=== PATIENT | female | born 1935 | race Caucasian/White ===

== ENCOUNTER → 2017-08-21 | Outpatient (CLI) | payer MEDICARE, OTHER ==
[~2017-08-21] MED LIST: AMLO10 PO; ASCO1ER; ASCO500 PO; ASPI81EC; CALCA500CH; CEPH500 PO; CHOL10002 PO; Co Q-10100 MG PO; ERGO50000 PO; FISH1000; FOLI400; GEMF600; GLUC500; HYDR1TAB94 PO; IRBE150; IRBE150 PO; METO50ER PO; MSM1000; MULVITMINF PO; OMEP20ER; Pyridium100 MG PO; TEGA2; TOCO400; WARF3 PO; WARF4; WARF5 PO
== END ==
LOC: LAB SHORT 13:06 → LAB EV 13:06
DX: N39.0 Urinary tract infection, site not specified (principal)
CPT/HCPCS: 87077; 87086; 87186

== ENCOUNTER → 2018-01-25 | Outpatient (CLI) | payer MEDICARE, OTHER ==
[~2018-01-25] MED LIST changes: +BENZ100A PO; +GUAI600T33 PO; +IRBE75 PO; +LIVALO1 MG PO; +Prednisone20 MG PO; +WARF2 PO
== END | disposition home or self-care (01) ==
LOC: LAB SHORT 14:45 → LAB 14:45
DX: L98.9 Disorder of the skin and subcutaneous tissue, unspecified (principal)
CPT/HCPCS: 87070; 87147

== ENCOUNTER 2018-05-22 17:16 | Emergency (ER) | payer MEDICARE, OTHER ==
[~2018-05-22] VITALS: Ht 154.9 cm; Wt 63.5 kg
[2018-05-22 19:27] LABS: BASOPHILS ABSOLUTE AUTO 0.03 K/mm3 (0.00-0.23); BASOPHILS PERCENT AUTO 0 % (0-2); EOSINOPHILS ABSOLUTE AUTO 0.06 K/mm3 (0.00-0.68); EOSINOPHILS PERCENT AUTO 1 % (0-6); Hematocrit 34.8 % (33.0-51.0); Hemoglobin 10.9 g/dL (11.5-16.0); IMMATURE GRAN ABSOLUTE AUTO 0.04 K/mm3 (0.00-0.10); IMMATURE GRAN PERCENT AUTO 1 % (0-1); LYMPHOCYTES ABSOLUTE AUTO 1.78 K/mm3 (0.84-5.20); LYMPHOCYTES PERCENT AUTO 24 % (21-46); MONOCYTES ABSOLUTE AUTO 0.91 K/mm3 (0.16-1.47); MONOCYTES PERCENT AUTO 12 % (4-13); Mean Corpuscular HGB 29.5 pg (26.0-34.0); Mean Corpuscular HGB Conc 31.3 g/dL (31.5-36.5); Mean Corpuscular Volume 94 fL (80-100); Mean Platelet Volume 10.7 fL (9.1-12.4); NEUTROPHILS ABSOLUTE AUTO 4.58 K/mm3 (1.96-9.15); NEUTROPHILS PERCENT AUTO 62 % (41-73); Platelet Count 222 K/mm3 (150-400); RDW Coefficient Variation 14.6 % (11.7-14.2); RDW Standard Deviation 50.8 fL (35.1-46.3); Red Blood Cell Count 3.69 M/mm3 (3.80-5.20)
[2018-05-22 19:43] LABS: Anion Gap 5 mmol/L (6-16); Blood Urea Nitrogen 22 mg/dL (8-24); Bun/Creatinine Ratio 26.7 (12.0-20.0); CO2, Blood 27 mmol/L (21-32); Calcium, Blood 8.1 mg/dL (8.5-10.1); Chloride, Blood 106 mmol/L (98-108); Creatinine, Blood 0.82 mg/dL (0.40-1.00); Glomerular Filtration Rate >60 (60-); Glucose, Blood 100 mg/dL (70-99); Potassium, Blood 4.3 mmol/L (3.5-5.5); Sodium, Blood 138 mmol/L (136-145)
[2018-05-22 19:44] LABS: International Normalized Ratio 2.69; Prothrombin Time Results 26.1 Sec (9.7-11.5)
[2018-05-22] MEDS ORDERED: Percocet 5-3251 EACH PO (20:38)
== END 2018-05-22 21:04 | disposition home or self-care (01) ==
LOC: ER 17:16
PROVIDERS: Emergency Medicine
DX: M62.830 Muscle spasm of back (principal); I10 Essential (primary) hypertension; I25.10 Atherosclerotic heart disease of native coronary artery without angina pectoris; K21.9 Gastro-esophageal reflux disease without esophagitis; Z88.5 Allergy status to narcotic agent; Z79.899 Other long term (current) drug therapy; Z79.01 Long term (current) use of anticoagulants; Z79.52 Long term (current) use of systemic steroids; Z87.891 Personal history of nicotine dependence
CPT/HCPCS: 72070; 80048; 85025; 85610; 99284-25

== ENCOUNTER → 2018-08-08 | Outpatient (CLI) | payer MEDICARE ==
[~2018-08-08] MED LIST changes: +Percocet 5-3251 EACH PO
[2018-08-08 10:57] LABS: Source, Urine Clean Catch
[2018-08-08 12:30] LABS: Bilirubin, Urine Neg (Neg); Blood, Urine 1+ (Neg); Glucose Qualitative, Urine Neg (Neg); Ketones, Urine Neg (Neg); Leukocyte Esterase, Urine 3+ (Neg); Nitrite, Urine Pos (Neg); Protein, Urine 2+ (Neg); Specific Gravity, Urine 1.015 (1.003-1.022); Urobilinogen, Urine NORM (Normal)
[2018-08-08 12:59] LABS: Appearance, Urine Clear (Clear); Color, Urine Yellow (P-Yellow)
[2018-08-08 13:00] LABS: White Blood Cells, Urine TNTC /hpf (0-5)
[2018-08-08 13:01] LABS: Bacteria Mod /hpf; Red Blood Cells, Urine 0-2 /hpf (0-2); Squamous Epithelial Cells Few /hpf (Few)
== END | disposition home or self-care (01) ==
LOC: LAB SHORT 10:56 → LAB 10:56
PROVIDERS: Internal Medicine
DX: R30.0 Dysuria (principal)
CPT/HCPCS: 81001; 87077; 87086; 87186

== ENCOUNTER 2019-01-16 18:57 | Observation (INO) | payer MEDICARE, OTHER ==
[~2019-01-16] VITALS: Ht 157.5 cm; Wt 62.6 kg
[2019-01-16 20:07] LABS: BASOPHILS ABSOLUTE AUTO 0.03 K/mm3 (0.00-0.23); BASOPHILS PERCENT AUTO 1 % (0-2); EOSINOPHILS ABSOLUTE AUTO 0.08 K/mm3 (0.00-0.68); EOSINOPHILS PERCENT AUTO 1 % (0-6); Hematocrit 36.2 % (33.0-51.0); IMMATURE GRAN ABSOLUTE AUTO 0.05 K/mm3 (0.00-0.10); IMMATURE GRAN PERCENT AUTO 1 % (0-1); LYMPHOCYTES ABSOLUTE AUTO 1.62 K/mm3 (0.84-5.20); LYMPHOCYTES PERCENT AUTO 27 % (21-46); MONOCYTES ABSOLUTE AUTO 0.74 K/mm3 (0.16-1.47); MONOCYTES PERCENT AUTO 12 % (4-13); Mean Corpuscular HGB 28.6 pg (26.0-34.0); Mean Corpuscular HGB Conc 30.4 g/dL (31.5-36.5); Mean Corpuscular Volume 94 fL (80-100); Mean Platelet Volume 10.8 fL (9.1-12.4); NEUTROPHILS ABSOLUTE AUTO 3.48 K/mm3 (1.96-9.15); NEUTROPHILS PERCENT AUTO 58 % (41-73); Platelet Count 226 K/mm3 (150-400); RDW Coefficient Variation 15.8 % (11.7-14.2); RDW Standard Deviation 53.7 fL (35.1-46.3); Red Blood Cell Count 3.84 M/mm3 (3.80-5.20)
[2019-01-16 20:19] LABS: Alanine Aminotransfer (ALT/SGP 26 U/L (12-78); Albumin, Blood 3.7 g/dL (3.4-5.0); Albumin/Globulin Ratio 1.1 (0.8-1.8); Alk Phos 84 U/L (50-136); Anion Gap 4 mmol/L (6-16); Aspartate Aminotrans (AST/SGOT 21 U/L (12-37); Bilirubin, Total 0.2 mg/dL (0.1-1.0); Blood Urea Nitrogen 29 mg/dL (8-24); Bun/Creatinine Ratio 30.2 (12.0-20.0); CO2, Blood 26 mmol/L (21-32); Calcium, Blood 8.8 mg/dL (8.5-10.1); Chloride, Blood 110 mmol/L (98-108); Creatinine, Blood 0.96 mg/dL (0.40-1.00); Globulin, Blood 3.4 g/dL (2.2-4.0); Glomerular Filtration Rate 59 (60-); Glucose, Blood 114 mg/dL (70-99); Potassium, Blood 4.6 mmol/L (3.5-5.5); Sodium, Blood 140 mmol/L (136-145); Total Protein, Blood 7.1 g/dL (6.4-8.2); Troponin I <0.015 ng/mL (0.000-0.040)
[2019-01-16] MEDS ORDERED: VITAMIN D33000 UNIT PO (20:20)
[2019-01-16] MEDS ORDERED: LIVALO2 MG PO (21:18)
[2019-01-16] MEDS ORDERED: METO50ER PO (21:25)
[2019-01-16] MEDS ORDERED: Amlodipine Besy10 MG PO (21:26)
[2019-01-16] MEDS ORDERED: Vitamin D2000 UNIT PO (21:27)
[2019-01-16] MEDS ORDERED: VITAMIN D50000 UNIT PO (22:41)
[2019-01-16] MEDS ORDERED: CO Q10200 MG PO (22:44)
[2019-01-17 00:06] LABS: International Normalized Ratio 1.81; Prothrombin Time Results 18.2 Sec (9.7-11.5)
--- NOTE | 2019-01-17 04:27 | NUR ---
SHIFT SUMMARY: PT IS ALERT AND ORIENTED. PT IS CALM AND COOPERATIVE WITH CARE. PT CALLS APPROPRIATELY. PT IS INDEPENDENT IN THE ROOM. PT REPORTS MINOR CHEST AND BACK PAIN, MEDICATING PER EMAR. PT DENIES NAUSEA, VOMITING, AND SOB. PT SLEPT MUCH OF THE NIGHT AFTER ADMISSION. NO ACUTE CHANGES OR COMPLICATIONS THIS SHIFT. BED IN LOW POSITION, CALL LIGHT WITHIN REACH. WILL REPORT TO DAY NURSE.
[2019-01-17 04:39] LABS: Hematocrit 32.7 % (33.0-51.0); Hemoglobin 10.2 g/dL (11.5-16.0); Mean Corpuscular HGB 28.5 pg (26.0-34.0); Mean Corpuscular HGB Conc 31.2 g/dL (31.5-36.5); Mean Platelet Volume 10.6 fL (9.1-12.4); Platelet Count 206 K/mm3 (150-400); RDW Coefficient Variation 15.8 % (11.7-14.2); RDW Standard Deviation 52.2 fL (35.1-46.3); Red Blood Cell Count 3.58 M/mm3 (3.80-5.20); White Blood Cell Count 10.96 K/mm3 (4.00-11.30)
[2019-01-17 04:42] LABS: Mean Corpuscular Volume 91 fL (80-100)
[2019-01-17 04:53] LABS: International Normalized Ratio 1.7; Prothrombin Time Results 17.2 Sec (9.7-11.5)
[2019-01-17 04:59] LABS: Alanine Aminotransfer (ALT/SGP 22 U/L (12-78); Albumin, Blood 3.1 g/dL (3.4-5.0); Alk Phos 74 U/L (50-136); Anion Gap 3 mmol/L (6-16); Aspartate Aminotrans (AST/SGOT 14 U/L (12-37); Bilirubin, Total 0.2 mg/dL (0.1-1.0); Blood Urea Nitrogen 25 mg/dL (8-24); Bun/Creatinine Ratio 30.5 (12.0-20.0); CO2, Blood 27 mmol/L (21-32); Calcium, Blood 8.2 mg/dL (8.5-10.1); Chloride, Blood 113 mmol/L (98-108); Creatinine, Blood 0.82 mg/dL (0.40-1.00); Globulin, Blood 3.1 g/dL (2.2-4.0); Glomerular Filtration Rate >60 (60-); Glucose, Blood 116 mg/dL (70-99); Potassium, Blood 4.3 mmol/L (3.5-5.5); Sodium, Blood 143 mmol/L (136-145); Total Protein, Blood 6.2 g/dL (6.4-8.2)
[2019-01-17 05:13] LABS: Source, Urine Clean Catch
[2019-01-17 05:18] LABS: Bilirubin, Urine Neg (Neg); Blood, Urine Neg (Neg); Glucose Qualitative, Urine Neg (Neg); Ketones, Urine Neg (Neg); Leukocyte Esterase, Urine 1+ (Neg); Nitrite, Urine Neg (Neg); Protein, Urine 1+ (Neg); Urobilinogen, Urine NORM (Normal)
[2019-01-17 05:24] LABS: Appearance, Urine Clear (Clear); Color, Urine Yellow (P-Yellow)
[2019-01-17 05:26] LABS: Bacteria Not Seen /hpf; Red Blood Cells, Urine Not Seen /hpf (0-2); Squamous Epithelial Cells Few /hpf (Few)
--- NOTE | 2019-01-17 16:48 | NUR ---
PATIENT A/OX4, UP INDPENDENTLY IN ROOM. B/P HAS COME DOWN SOME WITH MEDS, NO HYDRALAZINE GIVEN THIS SHIFT. PATIENT HAD 1ST PART OF STRESS TEST TODAY. WILL BE NPO AFTER BREAKFAST IN AM, NO CAFFEINE AFTER MN. NSR ON TELE, PATIENT REPORTS CHEST PAIN HAS RESOLVED. SKIN INTACT. 20G IV TO R FA WNL AND SL. DENIES ANY PAIN OR DISCOMFORT. CALLS APPROPRIATELY FOR ASSISTANCE.
--- NOTE | 2019-01-18 04:34 | NUR ---
SHIFT SUMMARY: PT IS ALERT AND ORIENTED. PT IS CALM AND COOPERATIVE WITH CARE. PT CALLS APPROPRIATELY. PT UP WITH STANDBY ASSIST TO THE BATHROOM. PT DENIES PAIN, NAUSEA, VOMITING, AND SOB. PT TO HAVE SECOND PART OF STRESS TEST TODAY, NPO AFTER BREAKFAST. POSSIBLE DISCHARGE TODAY. NO ACUTE CHANGES OR COMPLICATIONS. WILL CONTINUE TO MONITOR.
[2019-01-18 09:58] LABS: International Normalized Ratio 1.34; Prothrombin Time Results 13.8 Sec (9.7-11.5)
--- NOTE | 2019-01-18 16:19 | NUR ---
SHIFT SUMMARY: PT IS A/O X 4 WITH NO C/O PAIN. PT REMAINED NPO AFTER BREAKFAST THIS MORNING PER ORDERS FOR 2ND HALF OF STRESS TEST. STRESS TEST WAS COMPLETED AFTER LUNCH. PT REMIANS INDEPENDENT IN HER ROOM AND CALLS FOR HELP APPROPRIATELY.
[2019-01-18] MEDS ORDERED: Prinivil10 MG PO (17:10)
[2019-01-18] MEDS ORDERED: METO50 PO (17:14)
== END 2019-01-18 18:15 | disposition home or self-care (01) ==
LOC: ER 18:57 → MEDS 18:58 → ENPENDDIS 01-18 17:07 → MEDS 01-18 18:15
PROVIDERS: Emergency Medicine; Pharmacist; ADMIT Internal Medicine
DX: I16.0 Hypertensive urgency (principal); R53.1 Weakness; I25.10 Atherosclerotic heart disease of native coronary artery without angina pectoris; I10 Essential (primary) hypertension; E78.1 Pure hyperglyceridemia; K21.9 Gastro-esophageal reflux disease without esophagitis; Z79.899 Other long term (current) drug therapy; Z86.718 Personal history of other venous thrombosis and embolism; Z95.5 Presence of coronary angioplasty implant and graft; Z79.01 Long term (current) use of anticoagulants; Z88.5 Allergy status to narcotic agent
CPT/HCPCS: 36415; 71046; 71275; 74175; 78452; 80053; 81001; 83880; 84484; 85025; 85027; 85610; 87081; 87086; 87147; 93005; 93010; 93017; 96361; 96372; 96374-59; 96375-59; 96376; 99285-25; A9500; G0378; J0360; J1650; J2785; J3010; J7030; Q9967

== ENCOUNTER 2019-02-26 04:52 | Inpatient (IN) | payer MEDICARE, OTHER ==
[~2019-02-26] VITALS: Ht 154.9 cm; Wt 67.4 kg
[~2019-02-26 04:52] MED LIST changes: +Amlodipine Besy10 MG PO; +CENTRUM SILVER1 EAC2 PO; +CO Q10200 MG PO; +FISH OIL 1,0001 EACH PO; -FISH1000; -FOLI400; +FOLI400 PO; +LIVALO2 MG PO; +METO50 PO; -MULVITMINF PO; -OMEP20ER; +OMEP20ER PO; +Prinivil10 MG PO; +VITAMIN D33000 UNIT PO; +VITAMIN D50000 UNIT PO; +Vitamin D2000 UNIT PO
[2019-02-26] MEDS ORDERED: METF500 PO (05:13)
[2019-02-26] MEDS ORDERED: XARELTO20 MG PO (05:14)
[2019-02-26] MEDS ORDERED: HYDR1TAB94 (05:14)
[2019-02-26 05:24] LABS: BASOPHILS ABSOLUTE AUTO 0.04 K/mm3 (0.00-0.23); BASOPHILS PERCENT AUTO 0 % (0-2); EOSINOPHILS ABSOLUTE AUTO 0.09 K/mm3 (0.00-0.68); EOSINOPHILS PERCENT AUTO 1 % (0-6); Hemoglobin 11.2 g/dL (11.5-16.0); IMMATURE GRAN ABSOLUTE AUTO 0.07 K/mm3 (0.00-0.10); IMMATURE GRAN PERCENT AUTO 1 % (0-1); LYMPHOCYTES ABSOLUTE AUTO 2.02 K/mm3 (0.84-5.20); LYMPHOCYTES PERCENT AUTO 16 % (21-46); MONOCYTES ABSOLUTE AUTO 1.22 K/mm3 (0.16-1.47); MONOCYTES PERCENT AUTO 10 % (4-13); Mean Corpuscular HGB 28.1 pg (26.0-34.0); Mean Corpuscular HGB Conc 31.1 g/dL (31.5-36.5); Mean Corpuscular Volume 90 fL (80-100); Mean Platelet Volume 10.6 fL (9.1-12.4); NEUTROPHILS ABSOLUTE AUTO 9.25 K/mm3 (1.96-9.15); NEUTROPHILS PERCENT AUTO 73 % (41-73); Platelet Count 247 K/mm3 (150-400); RDW Standard Deviation 49.8 fL (35.1-46.3); Red Blood Cell Count 3.99 M/mm3 (3.80-5.20); White Blood Cell Count 12.69 K/mm3 (4.00-11.30)
[2019-02-26 05:51] LABS: Alanine Aminotransfer (ALT/SGP 20 U/L (12-78); Albumin, Blood 3.7 g/dL (3.4-5.0); Alk Phos 82 U/L (50-136); Anion Gap 7 mmol/L (6-16); Aspartate Aminotrans (AST/SGOT 18 U/L (12-37); Bilirubin, Total 0.3 mg/dL (0.1-1.0); Blood Urea Nitrogen 28 mg/dL (8-24); Bun/Creatinine Ratio 29.6 (12.0-20.0); CO2, Blood 23 mmol/L (21-32); Calcium, Blood 9.6 mg/dL (8.5-10.1); Chloride, Blood 110 mmol/L (98-108); Creatinine, Blood 0.95 mg/dL (0.40-1.00); Globulin, Blood 3.6 g/dL (2.2-4.0); Glomerular Filtration Rate >60 (60-); Glucose, Blood 120 mg/dL (70-99); Potassium, Blood 4.5 mmol/L (3.5-5.5); Sodium, Blood 140 mmol/L (136-145); Total Protein, Blood 7.3 g/dL (6.4-8.2)
--- NOTE | 2019-02-26 11:30 | NUR ---
ADMISSION PATIENT WAS ADMITTED TO FLOOR AROUND 0950 THIS MORNING. PATIENT DENIED NAUSEA OR PAIN, JUST WANTING TO SLEEP AT THIS TIME. PATIENT ORIENTED TO ROOM AND CALL BUTTON, INSTRUCTED TO CALL BEFORE GETTING UP. SON AT BEDSIDE. LR INFUSING INTO L AC IV. ADMIT HX AND ASSESSMENT WILL FOLLOW.
[2019-02-26 13:01] LABS: Hematocrit 32.6 % (33.0-51.0); Hemoglobin 10.1 g/dL (11.5-16.0)
--- NOTE | 2019-02-26 18:09 | NUR ---
SHIFT SUMMARY PATIENT IS A & O X4, 1 ASSIST TO GET UP. SHE STATES HER PAIN HAS INCREASED OVER THE SHIFT, SHE HAS ACHING AND STABBING PAIN OVER GENERALIZED ABD, FENTANYL GIVEN 1X FOR 5/10 PAIN. PT C/O MILD NAUSEA BUT STATES IT IMPROVED SINCE DR IRVING INSERTED THE NG TUBE AROUND 1445 TODAY. PT STATES HER THROAT HURTS AND IT'S MORE PAINFUL TO TALK WITH THE NG TUBE IN. LARGE AMOUNT DARK BROWN LIQUID PULLED OUT OF HER THROUGH LOW INTERMITTENT SUCTION. BLOOD SUGAR CHECK SWITCHED TO TWICE A DAY. SKIN INTACT. PATIENT HAS NOT HAD A BM THIS SHIFT FOR THE STOOL SAMPLE.
[2019-02-27 06:05] LABS: BASOPHILS ABSOLUTE AUTO 0.02 K/mm3 (0.00-0.23); BASOPHILS PERCENT AUTO 0 % (0-2); EOSINOPHILS ABSOLUTE AUTO 0.09 K/mm3 (0.00-0.68); EOSINOPHILS PERCENT AUTO 1 % (0-6); Hematocrit 29.7 % (33.0-51.0); IMMATURE GRAN ABSOLUTE AUTO 0.04 K/mm3 (0.00-0.10); IMMATURE GRAN PERCENT AUTO 1 % (0-1); LYMPHOCYTES ABSOLUTE AUTO 1.53 K/mm3 (0.84-5.20); LYMPHOCYTES PERCENT AUTO 22 % (21-46); MONOCYTES ABSOLUTE AUTO 0.97 K/mm3 (0.16-1.47); MONOCYTES PERCENT AUTO 14 % (4-13); Mean Corpuscular HGB 28.1 pg (26.0-34.0); Mean Corpuscular HGB Conc 30.3 g/dL (31.5-36.5); Mean Platelet Volume 10.7 fL (9.1-12.4); NEUTROPHILS ABSOLUTE AUTO 4.46 K/mm3 (1.96-9.15); NEUTROPHILS PERCENT AUTO 63 % (41-73); Platelet Count 194 K/mm3 (150-400); RDW Coefficient Variation 15.4 % (11.7-14.2); White Blood Cell Count 7.11 K/mm3 (4.00-11.30)
[2019-02-27 06:07] LABS: Mean Corpuscular Volume 93 fL (80-100)
[2019-02-27 06:30] LABS: Albumin, Blood 2.7 g/dL (3.4-5.0); Albumin/Globulin Ratio 0.9 (0.8-1.8); Bilirubin, Total 0.4 mg/dL (0.1-1.0); Bun/Creatinine Ratio 31.6 (12.0-20.0); Calcium, Blood 8.1 mg/dL (8.5-10.1); Creatinine, Blood 1.14 mg/dL (0.40-1.00); Globulin, Blood 2.9 g/dL (2.2-4.0); Magnesium, Blood 1.5 mg/dL (1.6-2.4); Phosphorus, Blood 3.9 mg/dL (2.5-4.9); Potassium, Blood 4.3 mmol/L (3.5-5.5); Total Protein, Blood 5.6 g/dL (6.4-8.2)
--- NOTE | 2019-02-27 07:29 | NUR ---
PT with hx of mult bowel surgeries and adhesions continues with large amts of green darl thin output. Dr had placed NG tube. Medicated for pain in abd x 2 with 50 mcg fentanyl. 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 HX cabg on tele monitoring with nsr. Up amb in room and had slightly unsteady gait. No stool to guiacc. DR started heparing gtt infusing at 19.2 ml hr. DNR status.
--- NOTE | 2019-02-27 14:46 | NUR ---
Spiritual care visit conducted. Patient is lying in bed and alert. Patient openly shares about her residing in a memory care facility and that they have been 46 years and have 5 grown children. Patient also infroms me that there middle son lives locally while the other children live out of state. I learn about patient's current medical condition and of the 30 surgeries patient has had in her life prior to this visit. I listen empathically and provide companionship and prayer (patient has a Pentecostal background). I will continue to remain available to patient and family.
--- NOTE | 2019-02-27 17:17 | NUR ---
SHIFT SUMMARY PATIENT IS TOLERATING NG TUBE WELL. OUTPUT DOCUMENTED. MEDICATED FOR PAIN. CURRENTLY WATCHING WORLD SERIES. ABLE TO MAKE HER NEEDS KNOWN. MEDICATED FOR PAIN PRN.
[2019-02-28 05:46] LABS: Magnesium, Blood 1.5 mg/dL (1.6-2.4)
[2019-02-28 05:47] LABS: Anion Gap 6 mmol/L (6-16); Blood Urea Nitrogen 20 mg/dL (8-24); Bun/Creatinine Ratio 21.9 (12.0-20.0); CO2, Blood 27 mmol/L (21-32); Chloride, Blood 107 mmol/L (98-108); Creatinine, Blood 0.92 mg/dL (0.40-1.00); Glomerular Filtration Rate >60 (60-); Glucose, Blood 101 mg/dL (70-99); Potassium, Blood 3.8 mmol/L (3.5-5.5); Sodium, Blood 140 mmol/L (136-145)
--- NOTE | 2019-02-28 08:10 | NUR ---
security shift manager summary: Patient had over 700 ml coffee ground gastric contents out overnight via NG to low/intermittant sx. Pain in abdomen controlled moderately with iv dilaudid. primary pain, which was controlled with ice pack was throat. heparin gtt currently running at 16 units/kg/hr for a rate of 20.5ml hour. blood pressures have not had to be covered with iv prn medications as they have remained below treatment parameters. report given to MEMO Barrera day shift.
[2019-02-28 11:01] LABS: BASOPHILS ABSOLUTE AUTO 0.02 K/mm3 (0.00-0.23); BASOPHILS PERCENT AUTO 0 % (0-2); EOSINOPHILS ABSOLUTE AUTO 0.11 K/mm3 (0.00-0.68); EOSINOPHILS PERCENT AUTO 2 % (0-6); Hematocrit 30.3 % (33.0-51.0); Hemoglobin 9.1 g/dL (11.5-16.0); IMMATURE GRAN ABSOLUTE AUTO 0.02 K/mm3 (0.00-0.10); IMMATURE GRAN PERCENT AUTO 0 % (0-1); LYMPHOCYTES ABSOLUTE AUTO 1.14 K/mm3 (0.84-5.20); LYMPHOCYTES PERCENT AUTO 21 % (21-46); MONOCYTES ABSOLUTE AUTO 0.99 K/mm3 (0.16-1.47); MONOCYTES PERCENT AUTO 18 % (4-13); Mean Corpuscular HGB 28.5 pg (26.0-34.0); Mean Corpuscular Volume 95 fL (80-100); NEUTROPHILS ABSOLUTE AUTO 3.11 K/mm3 (1.96-9.15); NEUTROPHILS PERCENT AUTO 58 % (41-73); Platelet Count 180 K/mm3 (150-400); RDW Coefficient Variation 15.1 % (11.7-14.2); RDW Standard Deviation 52.7 fL (35.1-46.3); Red Blood Cell Count 3.19 M/mm3 (3.80-5.20); White Blood Cell Count 5.39 K/mm3 (4.00-11.30)
--- NOTE | 2019-02-28 16:44 | NUR ---
SHIFT SUMMARY PATIENT MEDICATED X 2 FOR PAIN. DENIES NAUSEA AND SHORTNESS OF BREATH. NG TUBE TO LIS, DRAINING BROWN COFFEE GROUND OUTPUT. HEPARIN DRIP RUNNING. TPN ORDERED TO START TODAY. PATIENT UP SBA TO BSC. NO BM TODAY. FAMILY AT BEDSIDE. CALL LIGHT IN REACH.
--- NOTE | 2019-03-01 01:33 | NUR ---
PHARMACIST CONTACT: HEPARIN SPOKE WITH BARD DECKER REGARDING DISCREPANCY BETWEEN ORDERED DOSE OF HEPARIN AND DOSE BEING ADMINISTERED. PT PTT WITHIN THERAPEUTIC RANGE. PER PHARMACIST CONTINUE CURRENT HEPARIN DOSE OF 20 UNITS/KG/HR AT 25.6MLS/HR. NEXT PTT WILL BE DRAWN AT 0400 SCHEDULED.
[2019-03-01 04:40] LABS: Anion Gap 5 mmol/L (6-16); Blood Urea Nitrogen 15 mg/dL (8-24); Bun/Creatinine Ratio 16.7 (12.0-20.0); CO2, Blood 29 mmol/L (21-32); Calcium, Blood 7.9 mg/dL (8.5-10.1); Chloride, Blood 104 mmol/L (98-108); Glomerular Filtration Rate >60 (60-); Glucose, Blood 149 mg/dL (70-99); Magnesium, Blood 1.8 mg/dL (1.6-2.4); Phosphorus, Blood 2.7 mg/dL (2.5-4.9); Potassium, Blood 3.9 mmol/L (3.5-5.5); Sodium, Blood 138 mmol/L (136-145)
--- NOTE | 2019-03-01 06:08 | NUR ---
PHARMACY: RE: PTT RECIEVED CALL FROM PHARMACIST REGARDING PTT AND HEPARIN DOSING. PTT WITHIN THERAPEUTIC RANGE. NO CHANGE TO CURRENT HEPARIN DOSING. EMAR WILL BE UPDATED WITH RATE AT WHICH HEPARIN HAS BEEN INFUSIN UNITS/KG/HR AT RATE OF 25.6MLS/HR.
--- NOTE | 2019-03-01 07:46 | NUR ---
SHIFT SUMMARY: A/O, COMMUNICATING NEEDS. PLEASANT. REQUESTED DILAUDID FOR PAIN X 2 DURING THE NIGHT, FELL ASLEEP AFTER RECIEVING MEDICATION. T/F WITH 1 A. BOWEL TONES ACTIVE X 4. NO N/V. NO BM. INTERMITTENT NGT SUCTION- 500 CC COLA COLORED GASTRIC CONTENTS PUT OUT. TPN INCREASED TO 95 CC/HR, TOLERATED WELL. RESTING QUIETLY AT TIME OF SHIFT CHANGE. BED LOW, CALL LIGHT IN REACH.
--- NOTE | 2019-03-01 15:00 | NUR ---
Initial palliative care assessment: Shaista is an 83 year old who was admitted for a small bowel obstruction on 02/26/19. She has a history of recurrent SBO, recurrent DVT, DM, HTN, GERD. She reports having about 30 surgeries in the past. She has had many SBO in the past and states that she has always required surgery to relieve the SBO. She is currently on bowel rest with PPN nutrition and an NG tube to suction which has drained 500-600 ml per 12 hour shift over the past 24 hours. She denies nausea. She reports diffuse abd pain 5/10 which she states is better than it was when she was admitted and a sore throat/left neck area from the irritation of the NG tube. She lives alone. Her lives at [place]. She is his decision maker. Her brother and deaulh-sy-okm live about two blocks from her house. She has a son who lives in [place]. She reports that she is normally independent with ADLs and drives. She states that she sees Dr. Jaycee Watkins as per PCP and that she has and AD/POLST on file at Dr. Watkins' office. She reports she has a long history of mulitple surgeries and adhesions. She is hopeful that she will not have to have another surgery this time. She has passed flatus three times today. She was medicated for pain during my visit and became quite sleepy after the pain medication was given. She reports pain relief with IV pain medication. Nausea resolved with placement of the NG tube. She is hopeful that she will be able to go home after this hospital stay, she does however say she is willing to go to rehab if needed. Encouraged her to increase her mobility. She states that she has not been very active over the past couple days. She is looking forward to getting up and moving around even though it is difficult to do with all the tubes that are connected to her. Visit shortened as she wanted to rest after receiving pain medication. Will contact Dr. Watkins' office to see if a copy of her AD/POLST can be obtained. She confirmed her DNR status. PC will continue to follow for advanced care planning and symptom management.
--- NOTE | 2019-03-01 18:27 | NUR ---
SHIFT SUMMARY NO ACUTE CHANGES. PATIENT MEDICATED X 1 FOR PAIN. DENIES NAUSEA AND SHORTNESS OF BREATH. PATIENT UP SBA TO BS FOR LINE MANAGEMENT. PATIENT REPORTS PASSING GAS TODAY BUT NO BM. TPN RUNNING. HEPARIN DRIP RUNNING AT 19 UNITS/KG/HR. CALL LIGHT IN REACH.
[2019-03-02 04:32] LABS: Mean Platelet Volume 10.7 fL (9.1-12.4); Platelet Count 203 K/mm3 (150-400)
[2019-03-02 04:47] LABS: Anion Gap 7 mmol/L (6-16); Blood Urea Nitrogen 15 mg/dL (8-24); CO2, Blood 28 mmol/L (21-32); Calcium, Blood 8.3 mg/dL (8.5-10.1); Chloride, Blood 101 mmol/L (98-108); Creatinine, Blood 0.75 mg/dL (0.40-1.00); Glomerular Filtration Rate >60 (60-); Glucose, Blood 138 mg/dL (70-99); Magnesium, Blood 1.6 mg/dL (1.6-2.4); Phosphorus, Blood 2.9 mg/dL (2.5-4.9); Potassium, Blood 4.2 mmol/L (3.5-5.5); Sodium, Blood 136 mmol/L (136-145); Triglycerides 199 mg/dL (30-160)
--- NOTE | 2019-03-02 05:02 | NUR ---
SHIFT SUMMARY NO PASSING OF GAS OR BM THIS SHIFT. PT HAS HAD COMPLAINTS OF ABD PAIN OFF AND ON. NO OTHER COMPLAINTS AT THIS TIME. WILL CONTINUE TO MONITOR.
--- NOTE | 2019-03-02 09:29 | NUR ---
LATE ENTRY FOR 0700. HEPARIN VERIFIED. HEPARIN VERIFIED WITH MEMO WRIGHT.
--- NOTE | 2019-03-02 12:01 | NUR ---
PT SON'S NUMBER GIVEN TO DR. RAINEY. PT SON REQUESTING CALL FROM DR. DR. RAINEY GIVEN PT SON'S NUMBER & INFORMED THEY WOULD LIKE A PHONE CALL ABOUT PLAN OF CARE CAR. TELE ALSO DC'ED PER DR. GRANADOS
--- NOTE | 2019-03-02 12:39 | NUR ---
LATE ENTRY FOR 0730. IV COMPATIBILITY BHUMIKA MATUTE, PHARMACIST CONFIRMED THAT PPN & IV HEPARIN IS COMPATIBLE.
--- NOTE | 2019-03-02 17:18 | NUR ---
SHIFT SUMMARY NO CHANGES IN ASSESSMENT AT THIS TIME. PT NGT AT LOW INTERMITTEN SUCTION BROWNISH/GREEN OUTPUT. PT GIVEN HURRICAINE SPRAY 2X THIS SHIFT FOR THROAT PAIN. MEDICATED WITH PAIN MEDS ONCE. VSS. NO OTHER CHANGES IN ASSESSMENT AT THIS TIME. WILL CONTINUE TO MONITOR UNTIL TURNOVER IS COMPLETE.
--- NOTE | 2019-03-02 18:23 | NUR ---
HEPARIN TITRATION-LATE ENTRY FROM 1700 HEPARIN TITRATED TO 20 U/HR. 25.6ML/HR. VERIFIED BY JASMYNE Sexton RN.
--- NOTE | 2019-03-02 19:43 | NUR ---
LATE ENTRY FOR HEPARIN VERIFICATION AT 1900. HEPARIN VERIFIED WITH HENRY HAMPTON.
--- NOTE | 2019-03-03 03:39 | NUR ---
SHIFT SUMMARY NO CHANGES THIS SHIFT. PT HAS APPEARED TO REST COMFORTABLY. PT IS STILL WEAK AND SPEAKS VERY SOFTLY. PT SAYS SHE HAS BEEN PASSING GAS. WILL CONTINUE TO MONITOR.
[2019-03-03 05:00] LABS: Anion Gap 8 mmol/L (6-16); Blood Urea Nitrogen 19 mg/dL (8-24); Bun/Creatinine Ratio 26.4 (12.0-20.0); CO2, Blood 26 mmol/L (21-32); Calcium, Blood 8.3 mg/dL (8.5-10.1); Chloride, Blood 101 mmol/L (98-108); Creatinine, Blood 0.72 mg/dL (0.40-1.00); Glomerular Filtration Rate >60 (60-); Glucose, Blood 141 mg/dL (70-99); Magnesium, Blood 1.7 mg/dL (1.6-2.4); Phosphorus, Blood 3.2 mg/dL (2.5-4.9); Potassium, Blood 4.1 mmol/L (3.5-5.5); Sodium, Blood 135 mmol/L (136-145)
--- NOTE | 2019-03-03 18:45 | NUR ---
SHIFT SUMMARY. A&OX3, SBA TO BSC. NG TUBE TO GRAVITY THIS AFTERNOON, STARTED ON CLEAR LIQUIDS THIS EVENING. PT REPORTED PAIN TO THROAT SECONDARY TO NG, SHE REPORTED NOT TOLERATING HURRICANE SPRAY, MAGIC MOUTHWASH ORDERS RECIEVED, PT REPORTS RELIEF. PT REPORTED BACK PAIN SECONDARY TO BEDREST, ORDERS FOR LIDOCAINE PATCH RECIEVED, PT REPORTED NO BACK PAIN THIS SHIFT. NO N/V, SOB. FAMILY AND FRIENDS INTERMITTENTLY TO VISIT. PT RECIEVED BED BATH. NO NEW CHANGES OR CONCERNS.
--- NOTE | 2019-03-04 04:08 | NUR ---
SHIFT SUMMARY PT HAS REQUIRED LESS PAIN MEDICATION THIS SHIFT. SHE HAS APPEARED TO REST COMFORTABLY. NO OTHER CHANGES. WILL CONTINUE TO MONITOR.
--- NOTE | 2019-03-04 10:11 | NUR ---
NG TUBE CAME OUT WHEN PROGRESS WORKER MOVED PATIENT TO [facility]. PER OK TO LEAVE OUT AT THIS TIME. PATIENT PASSING GAS. NO BOWEL MOVEMENT. SIPS OF CLEAR LIQUIDS.
--- NOTE | 2019-03-04 16:50 | NUR ---
ALERT. ORIENTED. DENIES ANY PAIN THIS SHIFT. REFUSED LIDOCAINE PATCHES THIS SHIFT.NG NOT RESTARTED PER WITH AWARE.AMBULATORY IN HALLWAY. PASSING GAS, BUT NO BOWEL MOVEMENT AT THIS TIME. EATTING CLEAR LIQUIDS AND TOLERATING. DENIES N/V. UNLABORED RESPIRATIONS. BOWEL SOUNDS PRESENT. IV X 2 PATENT. HEPARIN D'C AND STARTED ON P.O. WCTM
--- NOTE | 2019-03-05 04:18 | NUR ---
SUMMARY: A/O, SPECIFIES NEEDS AND CALLS APPROPRIATELY. PT IS SBA W/FWW TO TOILET. SHE IS TOLERATING CLEAR LIQ'S AFTER NGT ACCIDENTALLY CAME OUT ON DAY SHIFT. PT DENIES N/V AND ABDO PAIN. SHE'S PASSING FLATUS BUT STILL HASN'T HAD BM SO UNABLE TO COLLECT GUAIC. PT WAS MEDICATED PRN W/DILAUDID 0.5MG FOR MARMOLEJO, NECK AND THROAT PAIN W/GOOD RELIEF. PT REFUSED NEED FOR LIDOCAINE PATCHES. NEW ORDERS RECIEVED FOR MELATONIN FOR SLEEP AND CEPACOL LOZANGES FOR SORE THROAT PER PT REQUEST, BOTH HAD GOOD EFFECT. IV AND PG ARE PATENT AND SL. RESPS E/U W/SPO2 WNL ON VIA NM. VSS/AFEBRILE, NO ACUTE CHANGES. WCTM AND REPORT TO DAY RN.
--- NOTE | 2019-03-05 09:18 | NUR ---
IN TO SEE PATIENT. BIBIANA NOTIFIED NEXT AVAILABLE TIME TO TRY AND WALK PATIENT IN HALLWAY
--- NOTE | 2019-03-05 12:00 | NUR ---
ADVISED PATIENT TAVERN KEEPER WILL TAKE HER FOR A WALK IN HALLWAY BEFORE 1PM. PATIENT AGREEABLE
--- NOTE | 2019-03-05 18:30 | NUR ---
ALERT. ORIENTED. DENIES N/V OR ABD PAIN. SLEEPY TODAY. SOME FITS OF COUGHING W/LOZENGE GIVEN FOR RELIEF.HAD EXCUSES FOR NOT AMBULATING TODAY. IV'S PATENT. UNLABORED RESPIRATIONS. STS PASSING SOME GAS, NO BOWEL MOVEMENT. WCTM
--- NOTE | 2019-03-05 22:26 | NUR ---
1999 RESTING COMFORTABLY IN BED, CONTACT PRECAUTIONS INTACT.
--- NOTE | 2019-03-06 05:14 | NUR ---
SHIFT SUMMARY: 83 Y/O FEMALE RESTED COMFORTABLY ALL SHIFT, NO BMs NOTED THIS SHIFT, STATED, "IM PASSING FLATUS, DENIES PAIN OR NAUSEA, CONTACT PRECAUTIONS MAINTAINED, BED ALARM APPLIED, BED LOW POSITION WITH CALL LIGHT AT SIDE.
--- NOTE | 2019-03-06 18:09 | NUR ---
SUMMARY PATIENT UP IN ROOM TO BATHROOM AND TO SIT IN CHAIR THROUGHOUT SHIFT. PATIENT [place] SMALL AMOUNTS OF REGULAR DIET AND DENIES NAUSEA OR ABD PAIN. PATIENT IS PASSING FLATUS. PATIENT TELLS ME SHE HAD AT ONE TIME AGREED TO SNF BUT NOW FEELS SHE CAN MANAGE AT HOME WITH FRIENDS AND FAMILY ASSISTING HER IF NEEDED
--- NOTE | 2019-03-07 04:05 | NUR ---
SHIFT SUMMARY: 83 Y/O FEMALE RESTED COMFORTABLY ALL SHIFT WITH NO C/O PAIN OR NAUSEA, PASSING FLATUS, EAGER TO RETURN HOME TODAY WITH HOME HEALTH CARE, ALERT AND ORIENTED X 4, BED ALARM APPLIED, BED LOW POSITION WITH CALL LIGHT AT SIDE, CONTACT PRECAUTIONS INTACT.
[2019-03-07] MEDS ORDERED: LIDOCARE1 EACH TOP (11:32)
[2019-03-07] MEDS ORDERED: NYST100000 MT (11:33)
--- NOTE | 2019-03-07 14:25 | NUR ---
Spiritual care visit conducted. Patient is sitting up on a chair and states that she is ready to go home. Patient tells me that she is very tired from staying in the hospital and that there is always activity and noise. Patient tells me that she is feeling much better than when she came in and is thatnkful that she did not have to have surgery. I provide a prayer of blessing for patient and her family. Patient thanks me for my time and care during her stay.
--- NOTE | 2019-03-07 16:29 | NUR ---
PT DISCHARGED AT 1600 WITH SON TO TRANSPORT. ALL PAPERS REVEIWED AND EDUCATIONAL MATERIAL SENT WITH PT. PERSONAL BELONGINGS COLLECTED AND PT ESCORTED OUT VIA WHEEL CHAIR. NO DISTRESS NOTED AOX4 AND COOPERATIVE OF ALL CARE.
== END 2019-03-07 15:52 | disposition home health service (06) | DRG 389 ==
LOC: ER 04:52 → MEDS 09:26 → ENPENDDIS 03-07 11:00 → MEDS 03-07 15:52
PROVIDERS: Emergency Medicine; Hospitalist; Nurse Practitioner Acute Care; Surgery; ADMIT Internal Medicine
DX: K56.609 Unspecified intestinal obstruction, unspecified as to partial versus complete obstruction (principal); I82.5Z9 Chronic embolism and thrombosis of unspecified deep veins of unspecified distal lower extremity; N17.9 Acute kidney failure, unspecified; Z79.01 Long term (current) use of anticoagulants; Z66 Do not resuscitate; I25.10 Atherosclerotic heart disease of native coronary artery without angina pectoris; E11.51 Type 2 diabetes mellitus with diabetic peripheral angiopathy without gangrene; K21.9 Gastro-esophageal reflux disease without esophagitis; I10 Essential (primary) hypertension; Z95.1 Presence of aortocoronary bypass graft; Z79.84 Long term (current) use of oral hypoglycemic drugs
CPT/HCPCS: 36415; 74019; 74176; 80048; 80053; 82947; 83690; 83735; 84100; 84478; 85014; 85018; 85025; 85049; 85730; 87081; 93005; 93010; 96374; 96375; 96376; 99285-25; C1751; C9113; J0360; J0610; J1170; J1644; J2405; J2550; J3010; J3411; J3475; J3480; J7120; J7131

== ENCOUNTER 2019-05-26 10:25 | Emergency (ER) | payer MEDICARE, OTHER ==
[~2019-05-26] VITALS: Ht 157.5 cm; Wt 62.6 kg
[~2019-05-26 10:25] MED LIST changes: +HYDR1TAB94; +LIDOCARE1 EACH TOP; +METF500 PO; +NYST100000 MT; +XARELTO20 MG PO
[2019-05-26] MEDS ORDERED: IRBESARTAN300 MG PO (11:23)
[2019-05-26] MEDS ORDERED: METFORMIN HCL500 M2 PO (11:25)
[2019-05-26] MEDS ORDERED: ROSU10TA PO (11:26)
[2019-05-26] MEDS ORDERED: HYDR1TAB94 PO (13:39)
== END 2019-05-26 14:30 | disposition home or self-care (01) ==
LOC: ER 10:25
DX: M62.830 Muscle spasm of back (principal); I10 Essential (primary) hypertension; I25.10 Atherosclerotic heart disease of native coronary artery without angina pectoris; E11.51 Type 2 diabetes mellitus with diabetic peripheral angiopathy without gangrene; I73.9 Peripheral vascular disease, unspecified; E78.5 Hyperlipidemia, unspecified; K21.9 Gastro-esophageal reflux disease without esophagitis; Z86.718 Personal history of other venous thrombosis and embolism; Z79.84 Long term (current) use of oral hypoglycemic drugs; Z88.5 Allergy status to narcotic agent; Z79.899 Other long term (current) drug therapy
CPT/HCPCS: 96374; 99284-25; A9270-GY; J3010

== ENCOUNTER 2019-07-02 07:38 | Inpatient (IN) | payer MEDICARE, OTHER ==
[~2019-07-02] VITALS: Ht 157.5 cm; Wt 58.1 kg
[~2019-07-02 07:38] MED LIST changes: +IRBESARTAN300 MG PO; +METFORMIN HCL500 M2 PO; +METO25 PO; -METO50 PO; +ROSU10TA PO; +VITAMIN D-32000 UNIT PO; -VITAMIN D33000 UNIT PO
[2019-07-02 08:09] LABS: BASOPHILS ABSOLUTE AUTO 0.05 K/mm3 (0.00-0.23); BASOPHILS PERCENT AUTO 1 % (0-2); EOSINOPHILS ABSOLUTE AUTO 0.14 K/mm3 (0.00-0.68); EOSINOPHILS PERCENT AUTO 1 % (0-6); Hematocrit 28.9 % (33.0-51.0); Hemoglobin 8.4 g/dL (11.5-16.0); IMMATURE GRAN ABSOLUTE AUTO 0.08 K/mm3 (0.00-0.10); IMMATURE GRAN PERCENT AUTO 1 % (0-1); LYMPHOCYTES ABSOLUTE AUTO 1.84 K/mm3 (0.84-5.20); LYMPHOCYTES PERCENT AUTO 17 % (21-46); MONOCYTES ABSOLUTE AUTO 0.97 K/mm3 (0.16-1.47); MONOCYTES PERCENT AUTO 9 % (4-13); Mean Corpuscular HGB 25.8 pg (26.0-34.0); Mean Corpuscular HGB Conc 29.1 g/dL (31.5-36.5); Mean Corpuscular Volume 89 fL (80-100); Mean Platelet Volume 10.4 fL (9.1-12.4); NEUTROPHILS ABSOLUTE AUTO 7.96 K/mm3 (1.96-9.15); NEUTROPHILS PERCENT AUTO 72 % (41-73); Platelet Count 278 K/mm3 (150-400); RDW Coefficient Variation 15.9 % (11.7-14.2); RDW Standard Deviation 51.2 fL (35.1-46.3); Red Blood Cell Count 3.26 M/mm3 (3.80-5.20); White Blood Cell Count 11.04 K/mm3 (4.00-11.30)
[2019-07-02 08:27] LABS: Alanine Aminotransfer (ALT/SGP 18 U/L (12-78); Albumin, Blood 3.4 g/dL (3.4-5.0); Alk Phos 63 U/L (50-136); Anion Gap 5 mmol/L (6-16); Aspartate Aminotrans (AST/SGOT 22 U/L (12-37); Bilirubin, Total 0.1 mg/dL (0.1-1.0); Blood Urea Nitrogen 29 mg/dL (8-24); CO2, Blood 24 mmol/L (21-32); Calcium, Blood 9.1 mg/dL (8.5-10.1); Chloride, Blood 112 mmol/L (98-108); Creatinine, Blood 0.91 mg/dL (0.40-1.00); Globulin, Blood 3.3 g/dL (2.2-4.0); Glomerular Filtration Rate >60 (60-); Glucose, Blood 127 mg/dL (70-99); Potassium, Blood 4.3 mmol/L (3.5-5.5); Sodium, Blood 141 mmol/L (136-145); Total Protein, Blood 6.7 g/dL (6.4-8.2)
[2019-07-02 09:37] LABS: Source, Urine Voided
[2019-07-02 09:41] LABS: Bilirubin, Urine Neg (Neg); Blood, Urine 1+ (Neg); Glucose Qualitative, Urine Neg (Neg); Ketones, Urine Neg (Neg); Leukocyte Esterase, Urine 1+ (Neg); Nitrite, Urine Neg (Neg); Protein, Urine 3+ (Neg); Specific Gravity, Urine 1.015 (1.003-1.022); Urobilinogen, Urine NORM (Normal)
[2019-07-02 09:46] LABS: Appearance, Urine Clear (Clear); Color, Urine Yellow (P-Yellow)
[2019-07-02 09:48] LABS: Bacteria Rare /hpf; Red Blood Cells, Urine 0-2 /hpf (0-2); Squamous Epithelial Cells Few /hpf (Few)
--- NOTE | 2019-07-02 15:14 | NUR ---
assumed care of pt from praveena campuzano rn PT RESTING IN BED. REPORTS NAUSEA "SO-SO" AND PAIN TOLERABLE. DENIES ANY NEEDS OTHER THAN PHONE TO MAKE CALL. MAINTENANCE HAS BEEN CALLED. CALL LIGHT IN REACH.
--- NOTE | 2019-07-02 15:51 | NUR ---
PERMISSION PATIENT GAVE PERMISSION ON 07/02/2019 TO BE INVOLVED IN HER CARE DURING CLINICAL TIME ON 07/03/2019.
[2019-07-02 16:18] LABS: Mean Platelet Volume 10.4 fL (9.1-12.4); Platelet Count 261 K/mm3 (150-400)
[2019-07-02 16:35] LABS: International Normalized Ratio 1.19; Prothrombin Time Results 12.6 Sec (9.7-11.5)
--- NOTE | 2019-07-02 18:19 | NUR ---
SUMMARY PT RESTING IN BED. UNABLE TO OBTAIN SECOND IV SITE. HEPARIN AND NS Y SITE COMPATIBLE PER PHARMACY. PT REPORTS PAIN AND NAUSEA TOLERABLE AT THIS TIME. PT SLEEPY. PASSED FLATUS WHILE RN IN ROOM. CALL LIGHT IN REACH.
[2019-07-03 00:20] LABS: BASOPHILS ABSOLUTE AUTO 0.02 K/mm3 (0.00-0.23); BASOPHILS PERCENT AUTO 0 % (0-2); EOSINOPHILS ABSOLUTE AUTO 0.07 K/mm3 (0.00-0.68); EOSINOPHILS PERCENT AUTO 1 % (0-6); Hematocrit 23.6 % (33.0-51.0); Hemoglobin 6.7 g/dL (11.5-16.0); IMMATURE GRAN ABSOLUTE AUTO 0.04 K/mm3 (0.00-0.10); IMMATURE GRAN PERCENT AUTO 1 % (0-1); LYMPHOCYTES ABSOLUTE AUTO 1.23 K/mm3 (0.84-5.20); LYMPHOCYTES PERCENT AUTO 15 % (21-46); MONOCYTES ABSOLUTE AUTO 0.88 K/mm3 (0.16-1.47); MONOCYTES PERCENT AUTO 10 % (4-13); Mean Corpuscular HGB 25.6 pg (26.0-34.0); Mean Corpuscular HGB Conc 28.4 g/dL (31.5-36.5); Mean Corpuscular Volume 90 fL (80-100); Mean Platelet Volume 10.2 fL (9.1-12.4); NEUTROPHILS ABSOLUTE AUTO 6.23 K/mm3 (1.96-9.15); NEUTROPHILS PERCENT AUTO 74 % (41-73); Platelet Count 210 K/mm3 (150-400); RDW Standard Deviation 53.1 fL (35.1-46.3); Red Blood Cell Count 2.62 M/mm3 (3.80-5.20); White Blood Cell Count 8.47 K/mm3 (4.00-11.30)
[2019-07-03 00:35] LABS: International Normalized Ratio 1.21; Prothrombin Time Results 12.8 Sec (9.7-11.5)
[2019-07-03 00:40] LABS: Magnesium, Blood 1.6 mg/dL (1.6-2.4)
[2019-07-03 00:41] LABS: Alanine Aminotransfer (ALT/SGP 50 U/L (12-78); Albumin, Blood 2.6 g/dL (3.4-5.0); Alk Phos 67 U/L (50-136); Anion Gap 4 mmol/L (6-16); Aspartate Aminotrans (AST/SGOT 36 U/L (12-37); Bilirubin, Total 0.2 mg/dL (0.1-1.0); Blood Urea Nitrogen 28 mg/dL (8-24); Bun/Creatinine Ratio 29.9 (12.0-20.0); CO2, Blood 24 mmol/L (21-32); Calcium, Blood 7.6 mg/dL (8.5-10.1); Chloride, Blood 117 mmol/L (98-108); Creatinine, Blood 0.94 mg/dL (0.40-1.00); Globulin, Blood 2.7 g/dL (2.2-4.0); Glomerular Filtration Rate >60 (60-); Glucose, Blood 107 mg/dL (70-99); Potassium, Blood 4.4 mmol/L (3.5-5.5); Sodium, Blood 145 mmol/L (136-145); Total Protein, Blood 5.3 g/dL (6.4-8.2)
--- NOTE | 2019-07-03 04:13 | NUR ---
CALL PLACED TO MEDICAL ASSOCIATE MD REGUARDING 1.7 POINT DROP IN HGB ABD 5.3 POINT DROP IN HCT, WILL ALSO UPDATE ON CRITICAL HIGH ON PTT. WILL CONTINUE TO MONITOR.
--- NOTE | 2019-07-03 04:43 | NUR ---
SECOND CALL PLACED TO MAJOR ACCOUNT MANAGER. WILL CONTINUE TO MONITOR.
--- NOTE | 2019-07-03 05:15 | NUR ---
CALL TO SUPERVISING ARCHITECT MD NOT RETURNED. NURSING HAND CIGAR MAKER CONTACTED AND INFORMED, WILL CONTINUE TO MONITOR.
--- NOTE | 2019-07-03 05:20 | NUR ---
SHIFT SUMMARY RESTING WITH EASE AT THIS TIME. RESPIRATIONS EVEN AND UNLABORED ON RA. HAS NO C/O PAIN THIS SHIFT. CONTINENT OF BOWEL AND BLADDER, USES BATHROOM. PIV IS PATENT, FLUSIHING WITH EASE WHILE INFUSING NS AT 100ML/HR AND HEPARIN AT 16.3ML/HR. DENIES FURTHER NEEDS OR WANTS AT THIS TIME. SAFETY MEASURES IN PLACE. WILL GIVE HAND OFF TO ONCOMING SHIFT USING SBAR.
[2019-07-03 08:42] LABS: Hematocrit 21.6 % (33.0-51.0); Hemoglobin 6.1 g/dL (11.5-16.0)
--- NOTE | 2019-07-03 14:06 | NUR ---
Patient is lying in bed and alert. Patient's son, Tenzin, is bedside. Patient tells me about her medical history, her family history and her concerns about what might be happening going forward. I listen empathically and provide companionship and pre-imaging/ possible surgery prayer. Patient responds well and shows signs of reduced stress. I will continue to remain available to patient and family.
[2019-07-03 16:01] LABS: Hematocrit 24.7 % (33.0-51.0)
--- NOTE | 2019-07-03 20:22 | NUR ---
SHIFT SUMMARY PT HAS REMAINED A&O X4, TOLERATING CLEAR FLUIDS, VSS. MULTIPLE LG BM'S NOTED SINCE SMALL BOWEL FOLLOW THROUGH WAS STARTED. 1 UNIT PRBC'S INFUSED WITH NO PROBLEMS. HEPERIN GTT D/C, PROTONIX GTT STARTED. GI CONSULT WAS CALLED PER ORDERS. NO OTHER CHANGES. REPORT GIVEN TO PRESLEY HAMPTON.
[2019-07-03 21:34] LABS: Hematocrit 27.8 % (33.0-51.0); Hemoglobin 8.2 g/dL (11.5-16.0)
[2019-07-04 04:25] LABS: Hematocrit 28.6 % (33.0-51.0); Hemoglobin 8.4 g/dL (11.5-16.0)
--- NOTE | 2019-07-04 07:51 | NUR ---
SHIFT SUMMARY: LACY HOANG" RESTED VERY LITTLE DURING THE NIGHT. SHE IS TOLERATING CLEAR LIQUIDS SLOWLY. SHE IS A STANDBY ASSIST. A&OX4. 20 G TO THE LEFT FOREARM PATENT. SHE REPORTS LIQUID STOOLS AFTER DRINKING THE CONTRAST FOR THE SMALL BOWEL FOLLOW THROUGH IMAGING STUDY YESTERDAY. SHE DENIES ANY NAUSEA/VOMITING THIS SHIFT. SHE IS LYING IN BED WITH HER CALL LIGHT IN REACH. WILL REPORT TO DAY SHIFT RN.
--- NOTE | 2019-07-04 08:05 | NUR ---
CALLED DR VILLASEÑOR BP AND STOPPED IVF. TO RESTART THE PO B/P MEDS. DO NOT GIVE THE IV B/P MED AT THIS TIME. ORDERS PENDING
[2019-07-04 10:12] LABS: Hematocrit 27.3 % (33.0-51.0); Hemoglobin 8.1 g/dL (11.5-16.0)
--- NOTE | 2019-07-04 11:40 | NUR ---
TO ENDOSCOPY AT 1140
--- NOTE | 2019-07-04 11:53 | NUR ---
PT PLEASANT A/O TALKING DENIES PAIN. SON IN ROOM. H/R REG, NO MUKRMER NOTED. NO TELE. LUNGS CLEAR RESP EASY, UNLABORED ON RA.. BT X4 ALST BM YEST. VOIDS BATHROOM. SBA. BED IN LOW POSITION, CALL LITE IN [facility], CALLS APPROP/ PENDING SCOPE THIS AM.
--- NOTE | 2019-07-04 12:14 | NUR ---
PATENT PERIPHERAL LINE IN RFA. LR RUNNING TKO IN RFA IV. VITAL SIGNS STABLE. A&OX4.
--- NOTE | 2019-07-04 12:17 | NUR ---
"DAY SURGERY RN | STUDENT RN VERIFICATION THIS RN VERIFIES STUDENT RN CHARTING CORRECT TO BEST OF KNOWLEDGE. ALL CHECKS COMPLETED BEFORE PROCEDURE. HANDOFF TO CYNTHIA HAMPTON."
--- NOTE | 2019-07-04 12:19 | NUR ---
"DAY SURGERY RN | REPORT FROM AKILAH HAMPTON AT 1266"
--- NOTE | 2019-07-04 12:22 | NUR ---
07/04/19 1222 Irma Parra History, Chart, Medications and Allergies reviewed before start of procedure. PATIENT CONFIRMS NPO STATUS AND AGREES WITH SCHEDULED PROCEDURE. MONITOR INTACT WITH CONTINUOUS PULSE OXIMETRY AND INTERMITTENT BP. O2 VIA N/C INTACT THROUGHOUT SEDATION/PROCEDURE. 3-LEAD EKG REVIEWED WITH PHYSICIAN PRIOR TO START OF PROCEDURE. Bite Block Placed. PATIENT DETERMINED TO BE ASA APPROPRIATE FOR PROPOFOL SEDATION PRIOR TO START OF PROCEDURE BY .
--- NOTE | 2019-07-05 00:37 | NUR ---
CONTACTED ON-CALL HOSPITALIST R/T CONCERNS ABOUT RESUMING HEPARIN DRIP D/T PT'S EXTENSIVE HX OF PVD, DVT AND SIGNIFICANT SURGICAL HISTORY. NO NEW ORDERS AT THIS TIME. MICHELLE.
--- NOTE | 2019-07-05 05:17 | NUR ---
SHIFT SUMMARY: LACY HOANG" IS A&OX4. SHE IS TOLERATING PO INTAKE WELL, ADVANCED TO ADA DIET YESTERDAY. PROTONIX INFUSING. SHE IS ABLE TO MAKE HER NEEDS KNOWN. SHE IS A STANDBY ASSIST D/T THE IV POLE, INDEPENDENT IN THE ROOM OTHERWISE. IV TO RIGHT FOREARM PATENT. PLAN FOR DAY SHIFT TO FU REGARDING RESTART OF HEPARIN INFUSION. WILL REPORT TO DAY SHIFT RN.
--- NOTE | 2019-07-05 06:26 | NUR ---
LACY "DORA" STATES THAT THE AREA IN HER LEFT FOREARM WHERE THE IV INFILTRATED YESTERDAY REMAINS PAINFUL, SWOLLEN, RED AND THE VEIN ABOVE THE AREA IS FIRM TO PALPATION. ORDER OBTAINED FROM DR. BETTS FOR DOPPER ULTRASOUND.
[2019-07-05 08:46] LABS: Hematocrit 27.6 % (33.0-51.0); Hemoglobin 8.3 g/dL (11.5-16.0)
[2019-07-05 13:07] LABS: Hematocrit 26.9 % (33.0-51.0)
--- NOTE | 2019-07-05 15:07 | NUR ---
0745 ULTRASOUND BEING DONE AT BEDSIDE. LEFT LOWER ARM SWOLLEN, REDDENED AND TENDER. PT REPORTS THIS WAS SITE OF A PREVIOYS IV
--- NOTE | 2019-07-05 15:23 | NUR ---
1300 PT REPORTS SLIGHT ABD CRAMPING IF SHE TAKES MORE THAN JUST A FEW BITES OF FOOD.
--- NOTE | 2019-07-05 15:24 | NUR ---
SUMMARY PT STANDBY ASSIST TO RESTROOM, DENIES NAUSEA. PT [place] SMALL AMOUNT OF REG DIET. SMEAR OF LIGHT BROWN STOOL. HEPARIN GTT INFUSING PER PUMP. NO INCREASE IN PAIN, REDNESS OR SWELLING TO LEFT ARM.
[2019-07-05 16:49] LABS: Hematocrit 28.5 % (33.0-51.0); Hemoglobin 8.5 g/dL (11.5-16.0)
[2019-07-05 20:38] LABS: Hematocrit 28.1 % (33.0-51.0); Hemoglobin 8.2 g/dL (11.5-16.0)
--- NOTE | 2019-07-06 00:54 | NUR ---
LAB DRAW RECEIVED CALL FROM LAB R/T QUESTIONING H/H DRAW TIMES, 2 ORDERS WERE PUT IN - Q6 AT 0223 AND Q8 AT 0028 TODAY. PT HAS PARTIAL THROMBOPLASTINE DUE AT 0100, WILL DRAW AT THAT TIME AND CONFIRM WITH DOCTOR IN AM TO FOLLOW Q6 OR Q8.
[2019-07-06 01:12] LABS: Hematocrit 27.7 % (33.0-51.0); Hemoglobin 8.4 g/dL (11.5-16.0)
--- NOTE | 2019-07-06 04:26 | NUR ---
SHIFT SUMMARY NO ACUTE CHANGES THIS SHIFT. HEPARIN INFUSING PER ORDERS. DENIES N/V OR NEED FOR PAIN MEDICATION. TOLERATING PO INTAKE. AMBULATES TO BATHROOM IND. ABLE TO MAKE NEEDS KNOWN. STILL SOME SWELLING TO LEFT FOREARM, ELEVATED TOLERATED. WILL CONT TO MONITOR AND GIVE REPORT TO ONCOMING RN .
[2019-07-06 09:15] LABS: Mean Platelet Volume 10.1 fL (9.1-12.4); Platelet Count 195 K/mm3 (150-400)
--- NOTE | 2019-07-06 18:12 | NUR ---
HEPARIN GTT STOPPED AND PT STARTED ON PO XARELTO TODAY. NO ACUTE CHANGES NOTED THIS SHIFT. PT IS ANTICIPATING DISCHARGE HOME TOMORROW IF LABS ARE OK. WILL CONTINUE TO MONITOR AND REPORT TO ONCOMING RN
--- NOTE | 2019-07-07 06:10 | NUR ---
PT HAD NO ACUTE CHANGES THIS SHIFT; BP ELEVATED AFTER ACTIVITY, NORMALIZED AFTER SETTLED BACK INTO BED. PT HAD NO N/V, REP MILD ABD CRAMPING. PT REP +FLATUS, NO BM THIS SHIFT. PT USING CALL LIGHT FOR ASSISTANCE, WILL CONT TO MONITOR UNTIL REP GIVEN TO ONCOMING RN.
[2019-07-07 06:50] LABS: BASOPHILS ABSOLUTE AUTO 0.03 K/mm3 (0.00-0.23); BASOPHILS PERCENT AUTO 1 % (0-2); EOSINOPHILS ABSOLUTE AUTO 0.23 K/mm3 (0.00-0.68); EOSINOPHILS PERCENT AUTO 4 % (0-6); Hematocrit 30.2 % (33.0-51.0); Hemoglobin 8.9 g/dL (11.5-16.0); IMMATURE GRAN ABSOLUTE AUTO 0.04 K/mm3 (0.00-0.10); IMMATURE GRAN PERCENT AUTO 1 % (0-1); LYMPHOCYTES ABSOLUTE AUTO 1.48 K/mm3 (0.84-5.20); LYMPHOCYTES PERCENT AUTO 26 % (21-46); MONOCYTES ABSOLUTE AUTO 0.78 K/mm3 (0.16-1.47); MONOCYTES PERCENT AUTO 14 % (4-13); Mean Corpuscular HGB 25.9 pg (26.0-34.0); Mean Corpuscular HGB Conc 29.5 g/dL (31.5-36.5); Mean Corpuscular Volume 88 fL (80-100); Mean Platelet Volume 10.2 fL (9.1-12.4); NEUTROPHILS ABSOLUTE AUTO 3.19 K/mm3 (1.96-9.15); NEUTROPHILS PERCENT AUTO 56 % (41-73); Platelet Count 208 K/mm3 (150-400); RDW Coefficient Variation 15.7 % (11.7-14.2); RDW Standard Deviation 50.2 fL (35.1-46.3); Red Blood Cell Count 3.43 M/mm3 (3.80-5.20); White Blood Cell Count 5.75 K/mm3 (4.00-11.30)
[2019-07-07 07:06] LABS: Anion Gap 3 mmol/L (6-16); Blood Urea Nitrogen 15 mg/dL (8-24); Bun/Creatinine Ratio 21.5 (12.0-20.0); CO2, Blood 27 mmol/L (21-32); Calcium, Blood 8.7 mg/dL (8.5-10.1); Chloride, Blood 110 mmol/L (98-108); Glomerular Filtration Rate >60 (60-); Glucose, Blood 95 mg/dL (70-99); Sodium, Blood 140 mmol/L (136-145)
[2019-07-07 07:16] LABS: Percent Saturation 5.6 % (15.0-50.0)
[2019-07-07 11:01] LABS: Thyroid Stimulating Hormone 3.71 uIU/mL (0.360-4.800)
--- NOTE | 2019-07-07 12:22 | NUR ---
IRON DEXTRON TEST DOSE OF IRON DEXTRON WAS ADMINISTERED AT 1124. PT TOLERATED WELL. NO SIGN OF REACTION TO IRON DEXTRON AT THIS TIME. PHARMACY CONTACTED FOR REMAINDER OF DOSE.
--- NOTE | 2019-07-07 17:39 | NUR ---
DOCUMENTATION BY KATHERIN STEPHENS STUDENT NURSE WAS REVIEWED AND THIS RN AGREES WITH THAT DOCUMENTATION.
--- NOTE | 2019-07-07 17:39 | NUR ---
SHIFT SUMMARY: PATIENT IS ALERT AND ORIENTED X4. PATIENT HAS BEEN AMBULATING IN THE ROOM TO USE THE BATHROOM WITHOUT COMPLICATIONS. PATIENT CALLS APPROPRIATELY WHEN NEEDING HELP OR WANTING TO ASK A QUESTION. PATIENT ON HER RIGHT FOREARM HAD SOME INFILTRATION FROM A PRIOR IV SO IT IS STILL WARM AND RED. STARTED ANOTHER IV ON THE LEFT FOREARM WITHOUT COMPLICATIONS. PATIENT HAS BEEN EATING ADEQUATELY FOR EACH MEAL. SHE LIKES TO DRINK PEPPERMINT TEA MOST OF THE TIME DURING THE SHIFT. HER SON CAME AND VISITED HER EARILER. PATIENT WAS ALSO GIVEN IRON DEXTROSE TO HELP WITH HER ANEMIA, AND SINCE THIS DRUG CAN CAUSE SERIOUS SIDE EFFECTS, SHE WAS MONITORED CLOSELY THROUGHOUT THE SHIFT. SHE HAS HAD NO SIGNS OR SYMPTOMS OF THE SIDE EFFECTS DURING THIS TIME. WILL CONTINUE TO MONITOR PATIENT.
[2019-07-08 06:02] LABS: BASOPHILS ABSOLUTE AUTO 0.03 K/mm3 (0.00-0.23); BASOPHILS PERCENT AUTO 1 % (0-2); EOSINOPHILS ABSOLUTE AUTO 0.21 K/mm3 (0.00-0.68); EOSINOPHILS PERCENT AUTO 4 % (0-6); Hematocrit 31.1 % (33.0-51.0); Hemoglobin 9.3 g/dL (11.5-16.0); IMMATURE GRAN ABSOLUTE AUTO 0.04 K/mm3 (0.00-0.10); IMMATURE GRAN PERCENT AUTO 1 % (0-1); LYMPHOCYTES ABSOLUTE AUTO 1.54 K/mm3 (0.84-5.20); LYMPHOCYTES PERCENT AUTO 31 % (21-46); MONOCYTES ABSOLUTE AUTO 0.74 K/mm3 (0.16-1.47); MONOCYTES PERCENT AUTO 15 % (4-13); Mean Corpuscular HGB 26.3 pg (26.0-34.0); Mean Corpuscular HGB Conc 29.9 g/dL (31.5-36.5); Mean Corpuscular Volume 88 fL (80-100); Mean Platelet Volume 10.3 fL (9.1-12.4); NEUTROPHILS ABSOLUTE AUTO 2.42 K/mm3 (1.96-9.15); NEUTROPHILS PERCENT AUTO 49 % (41-73); Platelet Count 238 K/mm3 (150-400); RDW Coefficient Variation 15.8 % (11.7-14.2); Red Blood Cell Count 3.53 M/mm3 (3.80-5.20); White Blood Cell Count 4.98 K/mm3 (4.00-11.30)
[2019-07-08] MEDS ORDERED: IRBE150 PO (11:41)
[2019-07-08] MEDS ORDERED: POTA10T PO (11:43)
[2019-07-08] MEDS ORDERED: HYDCHL25 PO (11:43)
--- NOTE | 2019-07-08 13:35 | NUR ---
DISCHARGE ESCORTED OUT VIA W/C. DISCHARGE INSTRUCTIONS DISCUSSED WITHOUT ANY ADDITIONAL QUESTIONS. PT DECLINED OFFER TO CALL FOR F/U APPOINTMENT. STATES SHE WILL CALL HERSELF.
== END 2019-07-08 13:50 | disposition home or self-care (01) | DRG 389 ==
LOC: ER 07:38 → SURS 11:34 → ERHOLD 11:34 → SURS 13:22
PROVIDERS: Emergency Medicine; Internal Medicine; Internal Medicine Gastroenterology; Nurse Practitioner Acute Care; ADMIT Internal Medicine
PROC: 30233N1 Transfusion of Nonautologous Red Blood Cells into Peripheral Vein, Percutaneous Approach (ICD-10-PCS; 2019-07-03)
PROC: 0DJ08ZZ Inspection of Upper Intestinal Tract, Via Natural or Artificial Opening Endoscopic (ICD-10-PCS; principal; 2019-07-04 11:30)
PROC: 0D5A8ZZ Destruction of Jejunum, Via Natural or Artificial Opening Endoscopic (ICD-10-PCS; 2019-07-04 11:30)
DX: K56.609 Unspecified intestinal obstruction, unspecified as to partial versus complete obstruction (principal); D62 Acute posthemorrhagic anemia; I10 Essential (primary) hypertension; D50.9 Iron deficiency anemia, unspecified; K21.9 Gastro-esophageal reflux disease without esophagitis; E78.5 Hyperlipidemia, unspecified; E11.51 Type 2 diabetes mellitus with diabetic peripheral angiopathy without gangrene; M81.0 Age-related osteoporosis without current pathological fracture; I25.10 Atherosclerotic heart disease of native coronary artery without angina pectoris; Z66 Do not resuscitate; Z95.5 Presence of coronary angioplasty implant and graft; Z86.718 Personal history of other venous thrombosis and embolism; Z79.01 Long term (current) use of anticoagulants; Z79.84 Long term (current) use of oral hypoglycemic drugs
CPT/HCPCS: 36415; 74022; 74176; 74250; 80048; 80053; 81001; 82728; 82947; 83540; 83550; 83690; 83735; 84439; 84443; 85014; 85018; 85025; 85049; 85610; 85730; 86850; 86900; 86901; 86923; 87077; 87086; 87147; 87186; 93005; 93010; 93971; 96361; 96374; 96375; 97116; 97161; 97165; 97530; 97535; 99285-25; A9270-GY; C9113; J0780; J1170; J1644; J1750; J2270; J2405; J2704; J7030; J7040; J7050; J7120; P9016

== ENCOUNTER 2019-10-21 02:11 | Emergency (ER) | payer MEDICARE, OTHER ==
[~2019-10-21] VITALS: Ht 157.5 cm; Wt 61.2 kg
[~2019-10-21 02:11] MED LIST changes: +HYDCHL25 PO; +POTA10T PO
[2019-10-21 02:34] LABS: BASOPHILS ABSOLUTE AUTO 0.03 K/mm3 (0.00-0.23); BASOPHILS PERCENT AUTO 1 % (0-2); EOSINOPHILS ABSOLUTE AUTO 0.11 K/mm3 (0.00-0.68); EOSINOPHILS PERCENT AUTO 2 % (0-6); Hematocrit 37.9 % (33.0-51.0); Hemoglobin 11.9 g/dL (11.5-16.0); IMMATURE GRAN ABSOLUTE AUTO 0.07 K/mm3 (0.00-0.10); IMMATURE GRAN PERCENT AUTO 1 % (0-1); LYMPHOCYTES ABSOLUTE AUTO 1.97 K/mm3 (0.84-5.20); LYMPHOCYTES PERCENT AUTO 30 % (21-46); MONOCYTES ABSOLUTE AUTO 0.82 K/mm3 (0.16-1.47); MONOCYTES PERCENT AUTO 13 % (4-13); Mean Corpuscular HGB 29.2 pg (26.0-34.0); Mean Corpuscular HGB Conc 31.4 g/dL (31.5-36.5); Mean Corpuscular Volume 93 fL (80-100); Mean Platelet Volume 10.4 fL (9.1-12.4); NEUTROPHILS PERCENT AUTO 54 % (41-73); Platelet Count 186 K/mm3 (150-400); RDW Coefficient Variation 15.6 % (11.7-14.2); RDW Standard Deviation 52.9 fL (35.1-46.3); Red Blood Cell Count 4.08 M/mm3 (3.80-5.20)
[2019-10-21 02:56] LABS: Alanine Aminotransfer (ALT/SGP 23 U/L (12-78); Albumin, Blood 3.5 g/dL (3.4-5.0); Alk Phos 73 U/L (50-136); Anion Gap 6 mmol/L (6-16); Aspartate Aminotrans (AST/SGOT 20 U/L (12-37); Bilirubin, Total 0.3 mg/dL (0.1-1.0); Blood Urea Nitrogen 29 mg/dL (8-24); Bun/Creatinine Ratio 34.9 (12.0-20.0); CO2, Blood 27 mmol/L (21-32); Calcium, Blood 8.8 mg/dL (8.5-10.1); Chloride, Blood 110 mmol/L (98-108); Creatinine, Blood 0.83 mg/dL (0.40-1.00); Globulin, Blood 3.4 g/dL (2.2-4.0); Glomerular Filtration Rate >60 (60-); Glucose, Blood 118 mg/dL (70-99); Magnesium, Blood 1.7 mg/dL (1.6-2.4); Sodium, Blood 143 mmol/L (136-145); Total Protein, Blood 6.9 g/dL (6.4-8.2); Troponin I <0.015 ng/mL (0.000-0.040)
[2019-10-21 03:02] LABS: Source, Urine Clean Catch
[2019-10-21 03:04] LABS: Appearance, Urine Clear (Clear); Bilirubin, Urine Neg (Neg); Blood, Urine 1+ (Neg); Color, Urine Yellow (P-Yellow); Glucose Qualitative, Urine Neg (Neg); Ketones, Urine Neg (Neg); Leukocyte Esterase, Urine Neg (Neg); Nitrite, Urine Neg (Neg); Protein, Urine 3+ (Neg); Urobilinogen, Urine NORM (Normal)
[2019-10-21 03:12] LABS: Bacteria Few /hpf; Red Blood Cells, Urine 0-2 /hpf (0-2); Squamous Epithelial Cells Rare /hpf (Few); White Blood Cells, Urine 0-2 /hpf (0-5)
== END 2019-10-21 04:30 | disposition home or self-care (01) ==
LOC: ER 02:11
PROVIDERS: Emergency Medicine
DX: K59.00 Constipation, unspecified (principal); Z88.5 Allergy status to narcotic agent; Z79.899 Other long term (current) drug therapy; I25.10 Atherosclerotic heart disease of native coronary artery without angina pectoris; E11.51 Type 2 diabetes mellitus with diabetic peripheral angiopathy without gangrene; I73.9 Peripheral vascular disease, unspecified; K21.9 Gastro-esophageal reflux disease without esophagitis; Z87.891 Personal history of nicotine dependence
CPT/HCPCS: 74176; 80053; 81001; 83690; 83735; 84145; 84484; 85025; 99284-25

== ENCOUNTER → 2020-03-16 | Outpatient (CLI) | payer MEDICARE, OTHER ==
[2020-03-16 16:25] LABS: Source, Urine Clean Catch
[2020-03-16 17:43] LABS: Appearance, Urine Cloudy (Clear); Bilirubin, Urine Neg (Neg); Blood, Urine 3+ (Neg); Color, Urine Yellow (P-Yellow); Glucose Qualitative, Urine Neg (Neg); Ketones, Urine 1+ (Neg); Leukocyte Esterase, Urine 3+ (Neg); Nitrite, Urine Pos (Neg); Protein, Urine 3+ (Neg); Urobilinogen, Urine NORM (Normal)
[2020-03-16 18:04] LABS: Mucus Light (0-Heavy)
[2020-03-16 18:05] LABS: Bacteria Many /hpf; Red Blood Cells, Urine TNTC /hpf (0-2); Renal Epithelial Rare /hpf (0-Rare); Squamous Epithelial Cells Few /hpf (Few); Transitional Epithelial Cells Few /hpf (0-Rare); White Blood Cells, Urine TNTC /hpf (0-5)
== END | disposition home or self-care (01) ==
LOC: OLS 16:23 → LAB SHORT 16:23
PROVIDERS: Internal Medicine
DX: R30.0 Dysuria (principal)
CPT/HCPCS: 81001; 87077; 87086; 87186

== ENCOUNTER 2020-10-03 00:22 | Emergency (ER) | payer MEDICARE, OTHER ==
[~2020-10-03] VITALS: Ht 157.5 cm; Wt 62.6 kg
[2020-10-03] MEDS ORDERED: Norco 5-325 Ta1 EACH PO (00:38)
[2020-10-03] MEDS ORDERED: LIDO700A20 TOP (03:29)
== END 2020-10-03 04:10 | disposition home or self-care (01) ==
LOC: ER 00:22
DX: M54.6 Pain in thoracic spine (principal); G89.29 Other chronic pain; I10 Essential (primary) hypertension; Z88.5 Allergy status to narcotic agent; Z79.899 Other long term (current) drug therapy; Z87.891 Personal history of nicotine dependence
CPT/HCPCS: 71045; 72128; 99284-25; A9270

== ENCOUNTER 2021-05-29 00:25 | Inpatient (IN) | payer MEDICARE, OTHER ==
[~2021-05-29] VITALS: Ht 157.5 cm; Wt 65.8 kg
[~2021-05-29 00:25] MED LIST changes: -FISH OIL 1,0001 EACH PO; -FOLI400 PO; +FOLIC ACID0.4 MG PO; +LIDO700A20 TOP; +Norco 5-325 Ta1 EACH PO; +OMEGA-3 FISH O1 EA13 PO; +THERA-D2000 UNIT PO; -VITAMIN D-32000 UNIT PO
[2021-05-29 00:51] LABS: BASOPHILS ABSOLUTE AUTO 0.04 K/mm3 (0.00-0.23); BASOPHILS PERCENT AUTO 1 % (0-2); EOSINOPHILS ABSOLUTE AUTO 0.16 K/mm3 (0.00-0.68); EOSINOPHILS PERCENT AUTO 2 % (0-6); Hematocrit 33.4 % (33.0-51.0); Hemoglobin 10.8 g/dL (11.5-16.0); IMMATURE GRAN ABSOLUTE AUTO 0.04 K/mm3 (0.00-0.10); IMMATURE GRAN PERCENT AUTO 1 % (0-1); LYMPHOCYTES ABSOLUTE AUTO 2.14 K/mm3 (0.84-5.20); LYMPHOCYTES PERCENT AUTO 25 % (21-46); MONOCYTES ABSOLUTE AUTO 1.07 K/mm3 (0.16-1.47); MONOCYTES PERCENT AUTO 12 % (4-13); Mean Corpuscular HGB 29.6 pg (26.0-34.0); Mean Corpuscular HGB Conc 32.3 g/dL (31.5-36.5); Mean Corpuscular Volume 92 fL (80-100); Mean Platelet Volume 11.1 fL (9.1-12.4); NEUTROPHILS ABSOLUTE AUTO 5.24 K/mm3 (1.96-9.15); NEUTROPHILS PERCENT AUTO 60 % (41-73); Platelet Count 216 K/mm3 (150-400); RDW Coefficient Variation 14.8 % (11.7-14.2); RDW Standard Deviation 49.5 fL (35.1-46.3); Red Blood Cell Count 3.65 M/mm3 (3.80-5.20); White Blood Cell Count 8.69 K/mm3 (4.00-11.30)
[2021-05-29 01:11] LABS: Albumin, Blood 3.6 g/dL (3.4-5.0); Bilirubin, Total 0.3 mg/dL (0.1-1.0); Bun/Creatinine Ratio 34.3 (12.0-20.0); Calcium, Blood 9.1 mg/dL (8.5-10.1); Creatinine, Blood 0.93 mg/dL (0.40-1.00); Globulin, Blood 3.5 g/dL (2.2-4.0); Potassium, Blood 4.7 mmol/L (3.5-5.5); Total Protein, Blood 7.1 g/dL (6.4-8.2)
[2021-05-29 01:27] LABS: International Normalized Ratio 1.19; Prothrombin Time Results 12.4 Sec (9.7-11.5)
[2021-05-29 09:45] LABS: Hematocrit 32.7 % (33.0-51.0); Hemoglobin 10.2 g/dL (11.5-16.0)
[2021-05-29 15:25] LABS: Hemoglobin 10.7 g/dL (11.5-16.0)
--- NOTE | 2021-05-29 15:55 | NUR ---
PATIENT HAD AN UNEVENTFUL SHIFT. COMPLAINED OF SOME LEFT SIDED ABDOMENAL PAIN AT THE START OF SHIFT WITH EFFECTIVE RESULTS FROM IV FENTANYL. IVF AND IV PROTONIX DRIP RUNNING AT THIS TIME. PATIENT CONTINUES TO REST IN HER ROOM. CONSULTED BY DR CACERES THIS AFTERNOON. CALL LIGHT WITHIN REACH.
[2021-05-29 21:34] LABS: Hematocrit 30.8 % (33.0-51.0); Hemoglobin 9.8 g/dL (11.5-16.0)
[2021-05-30 02:32] LABS: BASOPHILS ABSOLUTE AUTO 0.02 K/mm3 (0.00-0.23); BASOPHILS PERCENT AUTO 0 % (0-2); EOSINOPHILS ABSOLUTE AUTO 0.09 K/mm3 (0.00-0.68); EOSINOPHILS PERCENT AUTO 1 % (0-6); Hematocrit 27.8 % (33.0-51.0); Hemoglobin 8.9 g/dL (11.5-16.0); IMMATURE GRAN ABSOLUTE AUTO 0.03 K/mm3 (0.00-0.10); IMMATURE GRAN PERCENT AUTO 0 % (0-1); LYMPHOCYTES ABSOLUTE AUTO 1.64 K/mm3 (0.84-5.20); LYMPHOCYTES PERCENT AUTO 24 % (21-46); MONOCYTES ABSOLUTE AUTO 0.88 K/mm3 (0.16-1.47); MONOCYTES PERCENT AUTO 13 % (4-13); Mean Corpuscular HGB 29.4 pg (26.0-34.0); Mean Corpuscular Volume 92 fL (80-100); Mean Platelet Volume 11.4 fL (9.1-12.4); NEUTROPHILS PERCENT AUTO 61 % (41-73); Platelet Count 173 K/mm3 (150-400); RDW Coefficient Variation 15.2 % (11.7-14.2); RDW Standard Deviation 50.4 fL (35.1-46.3); Red Blood Cell Count 3.03 M/mm3 (3.80-5.20); White Blood Cell Count 6.76 K/mm3 (4.00-11.30)
[2021-05-30 02:47] LABS: Albumin, Blood 2.8 g/dL (3.4-5.0); Anion Gap 6 mmol/L (6-16); Blood Urea Nitrogen 18 mg/dL (8-24); Bun/Creatinine Ratio 19.2 (12.0-20.0); CO2, Blood 26 mmol/L (21-32); Calcium, Blood 8.2 mg/dL (8.5-10.1); Chloride, Blood 112 mmol/L (98-108); Creatinine, Blood 0.94 mg/dL (0.40-1.00); Glomerular Filtration Rate 57 (60-); Glucose, Blood 95 mg/dL (70-99); Phosphorus, Blood 2.9 mg/dL (2.5-4.9); Potassium, Blood 3.9 mmol/L (3.5-5.5); Sodium, Blood 144 mmol/L (136-145)
--- NOTE | 2021-05-30 04:14 | NUR ---
SHIFT SUMMARY NO ACUTE CHANGES TO REPORT THIS SHIFT, PT HAS RESTED OFF AND ON T/O SHIFT, PT HAS NOT BEEN COMPLAINING OF PAIN. FLUIDS AND PROTONIX GTT INFUSING ORDERED. PT A/OX4, BUT DOES NOT CALL APPROPRIATELY WHEN NEEDING ASSISTANCE TO THE BATHROOM AND WILL ATTEMPT TO GO ON HER OWN. BED ALARM IN PLACE FOR SAFETY. BED IN LOWEST POSITION, CALL LIGHT WITHIN REACH.
[2021-05-30 12:32] LABS: Hemoglobin 9.3 g/dL (11.5-16.0)
[2021-05-30 18:09] LABS: Hematocrit 28.7 % (33.0-51.0); Hemoglobin 9.2 g/dL (11.5-16.0)
--- NOTE | 2021-05-30 18:51 | NUR ---
SHIFT SUMMARY PT AXO, PLEASANT AND COOPERATIVE WITH CARE. PATIENT DENIES N/V, PAIN AND SOB. CLEAR LIQUID DIET STARTED THIS SHIFT. PT TOLERATING WELL. VSS STABLE THOUGH AT 1500 BP WAS 160/50. THIS NURSE REASSESSED AND BP WAS DOWN TO 146/47 SO MEDICATION WAS NOT INDICATED PER EMAR. PT URINATING FREQUENTLY. UP WITH 1 ASSIST WITH FWW TO BATHROOM. ON TELE NSR AT 79. BED IN LOW POSITION, CALL LIGHT WITHIN REACH.
[2021-05-31 04:44] LABS: BASOPHILS ABSOLUTE AUTO 0.03 K/mm3 (0.00-0.23); BASOPHILS PERCENT AUTO 1 % (0-2); EOSINOPHILS ABSOLUTE AUTO 0.14 K/mm3 (0.00-0.68); EOSINOPHILS PERCENT AUTO 3 % (0-6); Hematocrit 30.7 % (33.0-51.0); Hemoglobin 9.5 g/dL (11.5-16.0); IMMATURE GRAN ABSOLUTE AUTO 0.02 K/mm3 (0.00-0.10); IMMATURE GRAN PERCENT AUTO 0 % (0-1); LYMPHOCYTES ABSOLUTE AUTO 1.35 K/mm3 (0.84-5.20); LYMPHOCYTES PERCENT AUTO 25 % (21-46); MONOCYTES ABSOLUTE AUTO 0.86 K/mm3 (0.16-1.47); MONOCYTES PERCENT AUTO 16 % (4-13); Mean Corpuscular HGB 28.8 pg (26.0-34.0); Mean Corpuscular HGB Conc 30.9 g/dL (31.5-36.5); Mean Corpuscular Volume 93 fL (80-100); Mean Platelet Volume 11.2 fL (9.1-12.4); NEUTROPHILS ABSOLUTE AUTO 3.04 K/mm3 (1.96-9.15); NEUTROPHILS PERCENT AUTO 56 % (41-73); Platelet Count 165 K/mm3 (150-400); RDW Coefficient Variation 14.9 % (11.7-14.2); RDW Standard Deviation 50.8 fL (35.1-46.3); White Blood Cell Count 5.44 K/mm3 (4.00-11.30)
[2021-05-31 04:54] LABS: Albumin, Blood 2.9 g/dL (3.4-5.0); Anion Gap 6 mmol/L (6-16); Blood Urea Nitrogen 11 mg/dL (8-24); Bun/Creatinine Ratio 12.3 (12.0-20.0); CO2, Blood 26 mmol/L (21-32); Calcium, Blood 8.6 mg/dL (8.5-10.1); Chloride, Blood 112 mmol/L (98-108); Creatinine, Blood 0.89 mg/dL (0.40-1.00); Glomerular Filtration Rate >60 (60-); Glucose, Blood 107 mg/dL (70-99); Phosphorus, Blood 2.9 mg/dL (2.5-4.9); Potassium, Blood 3.7 mmol/L (3.5-5.5); Sodium, Blood 144 mmol/L (136-145)
--- NOTE | 2021-05-31 05:19 | NUR ---
SHIFT SUMMARY PT STILL REPORTS MILD ABD PAIN, 3 (0-10), SHE HAS NOT BEEN REQUESTING ANYTHING FOR PAIN AND REPORTS MANAGABLE. PT STILL HAS NOT HAD A BM THIS SHIFT DESPITE STARTING MIRALAX. SHE DOES REPORT THAT SHE IS PASSING GAS NOW. PT TOLERATING CLEAR LIQUID DIET AND IS HOPING HER DIET CAN BE FURTHER ADVANCED TODAY. PROTONIX GTT STILL INFUSING ORDERED. NO ACUTE CHANGES TO REPORT. BED IN LOWEST POSITION, CALL LIGHT WITHIN REACH.
--- NOTE | 2021-05-31 08:30 | NUR ---
DR MONTES IN TO SEE PT.
--- NOTE | 2021-05-31 11:56 | NUR ---
PT RESTING IN BED. REPORTS VOIDED BUT NO BM. STATES DID PASS SOME FLATUS. CALL LIGHT IN REACH.
--- NOTE | 2021-05-31 18:12 | NUR ---
SUMMARY NO ACUTE CHANGES T/O SHIFT. PT CONTINUES TO REPORT SOME DISCOMFORT TO LLQ. REPORTED SLIGHT BLOATING AFTER BREAKFAST. DR MONTES ADVISED PT TO TAKE DIET SLOWLY, NOT TO PUSH SELF TO EAT. PT REPORTS PASSING FLATUS BUT NO BM OF YET. NEW IV STARTED BY JAYA FORRESTER. IV PROTONIX INFUSING PER ORDERS. PT AMBULATES W/SBA TO RESTROOM AND BACK. USES CALL LIGHT APPROPRIATELY. CALL LIGHT IN REACH.
--- NOTE | 2021-06-01 04:31 | NUR ---
SUMMARY: PT A/OX4, CALLS APPROPRIATELY TO SPECIFY NEEDS AND IS PLEASANT AND COOPERATIVE W/CARE. SHE CONT'S TO C/O MILD ABDO DISCOMFORT W/BLOATING AFTER DRINKING LIQ'S BUT REPORTS RELIEF AFTER ALLOWING STOMACH TO REST. PT PASSING FLATUS W/BT'S PRESENT X4 QUADRANTS THOUGH SHE STILL HASN'T HAD A BM DESPITE STARTING MIRILAX. PROTONIX GTT INFUSES FOR POSSIBLE GI BLEED. SHE'S SBA TO TOILET/BSC TO VOID AND PT DENIES DIZYNESS, DYSPNEA AND ALL OTHER COMPLAINTS. SBP WAS ELEVATED AT START OF SHIFT BUT PRN HYDRALAZINE WAS RECIEVED PER PARAMETERS FOR IMPROVEMENT. PT IS NSR AT 60'S-80'S BPM PER TELEMETRY W/VSS AND AFEBRILE, NO ACUTE CHANGES. WCTM AND REPORT TO DAY RN.
[2021-06-01 04:35] LABS: BASOPHILS ABSOLUTE AUTO 0.03 K/mm3 (0.00-0.23); BASOPHILS PERCENT AUTO 1 % (0-2); EOSINOPHILS ABSOLUTE AUTO 0.18 K/mm3 (0.00-0.68); EOSINOPHILS PERCENT AUTO 3 % (0-6); Hematocrit 32.6 % (33.0-51.0); Hemoglobin 10.3 g/dL (11.5-16.0); IMMATURE GRAN ABSOLUTE AUTO 0.03 K/mm3 (0.00-0.10); IMMATURE GRAN PERCENT AUTO 1 % (0-1); LYMPHOCYTES ABSOLUTE AUTO 1.59 K/mm3 (0.84-5.20); LYMPHOCYTES PERCENT AUTO 24 % (21-46); MONOCYTES ABSOLUTE AUTO 1.01 K/mm3 (0.16-1.47); MONOCYTES PERCENT AUTO 16 % (4-13); Mean Corpuscular HGB Conc 31.6 g/dL (31.5-36.5); Mean Corpuscular Volume 92 fL (80-100); Mean Platelet Volume 11.8 fL (9.1-12.4); NEUTROPHILS ABSOLUTE AUTO 3.69 K/mm3 (1.96-9.15); NEUTROPHILS PERCENT AUTO 56 % (41-73); Platelet Count 219 K/mm3 (150-400); RDW Coefficient Variation 14.6 % (11.7-14.2); RDW Standard Deviation 49.6 fL (35.1-46.3); Red Blood Cell Count 3.55 M/mm3 (3.80-5.20); White Blood Cell Count 6.53 K/mm3 (4.00-11.30)
[2021-06-01 04:59] LABS: Albumin, Blood 3.1 g/dL (3.4-5.0); Anion Gap 6 mmol/L (6-16); Blood Urea Nitrogen 11 mg/dL (8-24); Bun/Creatinine Ratio 12.4 (12.0-20.0); CO2, Blood 26 mmol/L (21-32); Calcium, Blood 8.6 mg/dL (8.5-10.1); Chloride, Blood 110 mmol/L (98-108); Creatinine, Blood 0.89 mg/dL (0.40-1.00); Glomerular Filtration Rate >60 (60-); Glucose, Blood 103 mg/dL (70-99); Phosphorus, Blood 3.1 mg/dL (2.5-4.9); Potassium, Blood 4.2 mmol/L (3.5-5.5); Sodium, Blood 142 mmol/L (136-145)
[2021-06-01 11:19] LABS: BASOPHILS ABSOLUTE AUTO 0.05 K/mm3 (0.00-0.23); BASOPHILS PERCENT AUTO 1 % (0-2); EOSINOPHILS ABSOLUTE AUTO 0.15 K/mm3 (0.00-0.68); EOSINOPHILS PERCENT AUTO 2 % (0-6); Hemoglobin 11.4 g/dL (11.5-16.0); IMMATURE GRAN ABSOLUTE AUTO 0.02 K/mm3 (0.00-0.10); IMMATURE GRAN PERCENT AUTO 0 % (0-1); LYMPHOCYTES ABSOLUTE AUTO 1.16 K/mm3 (0.84-5.20); LYMPHOCYTES PERCENT AUTO 19 % (21-46); MONOCYTES ABSOLUTE AUTO 0.65 K/mm3 (0.16-1.47); MONOCYTES PERCENT AUTO 10 % (4-13); Mean Corpuscular HGB 29.1 pg (26.0-34.0); Mean Platelet Volume 11.1 fL (9.1-12.4); NEUTROPHILS ABSOLUTE AUTO 4.23 K/mm3 (1.96-9.15); NEUTROPHILS PERCENT AUTO 68 % (41-73); Platelet Count 184 K/mm3 (150-400); RDW Standard Deviation 52.9 fL (35.1-46.3); Red Blood Cell Count 3.92 M/mm3 (3.80-5.20); White Blood Cell Count 6.26 K/mm3 (4.00-11.30)
[2021-06-01 11:20] LABS: Mean Corpuscular Volume 97 fL (80-100)
--- NOTE | 2021-06-01 11:30 | NUR ---
TRANSFER: Patient was transferred down from medical floor to PCU 10 following a rapid response. Per the medical floor RN Jaycee, patient was down in imaging for her small bowel follow through when she appeared to become unresponsive. The research and development technician called the RN and brought the patient back to the floor, she appeared to have a large BM while in transit. When patient arrives to PCU 10 she is resting with eyes closed, easily awakens with vebal stimuli. She is pale. She states she is very tired and falls back asleep quickly. HRR, she is sinus rey in the 50s patients heart rate dropped down into the low 30s while she was down in imaging. LS Dim in the bases, biox 100% on 2L. BT+, she is tender to palpation. VSS at this time. Call light in reach. Will continue to monitor.
[2021-06-01 11:36] LABS: Albumin, Blood 3.5 g/dL (3.4-5.0); Anion Gap 8 mmol/L (6-16); Blood Urea Nitrogen 11 mg/dL (8-24); Bun/Creatinine Ratio 10.8 (12.0-20.0); CO2, Blood 24 mmol/L (21-32); Calcium, Blood 9.3 mg/dL (8.5-10.1); Chloride, Blood 113 mmol/L (98-108); Creatinine, Blood 1.02 mg/dL (0.40-1.00); Glomerular Filtration Rate 51 (60-); Glucose, Blood 192 mg/dL (70-99); Phosphorus, Blood 3.5 mg/dL (2.5-4.9); Sodium, Blood 145 mmol/L (136-145)
--- NOTE | 2021-06-01 13:59 | NUR ---
PT STARTED SHIFT AOX4 AND COOPERATIVE OF CARE. PT WAS INDEPENDENT TO BEDSIDE COMMODE AND A STANDBY ASSIST TO TRANSFER TO WHEELCHAIR. PT DENIED ANY PAIN AND WAS VERY PLEASANT. PT WAS TAKEN DOWN TO IMAGING. PLEASE REFER TO GEAR HOBBER SET UP OPERATOR INTIATION FOR THE FOLLOWING EVENTS. PT ENDED UP GOING DOWN TO PCU AND REPORT WAS GIVEN AT BEDSIDE.
--- NOTE | 2021-06-01 14:37 | NUR ---
Update: Patient is more awake and oriented now. She states she does not remember bits and pieces of what happened earlier. She had a medium liquid BM, brown. Patient remains SR in the 70s. Patient denies other needs at this time. Call light in reach, will continue to monitor.
--- NOTE | 2021-06-01 18:05 | NUR ---
SUMMARY: Patient arrived down from medical floor today following a syncopal episode while she was in imaging for a small bowel study. At the time of her event she vagaled and heart rate went down into the 30s. She was promptly sent back to her room on medical floor and she came down to PCU 10 following a rapid response. Initially after she arrived to PCU she was lethargic. After about 2-3 hours she became more alert and oriented. She has been SR in the 70s. VSS. She initially came in with a possible small bowel obstruction, this is resolving following her imaging studies today. She continues to pass liquid stools. No acute changes since arrival to PCU, will report to oncoming RN.
--- NOTE | 2021-06-01 21:04 | NUR ---
CARE ASSUMPTION PT IS LYING IN BED DENYING ANY PAIN OR NAUSEA AT THIS TIME. O2 SATS >90% ON RM AIR. TELE SHOWING SR IN THE 70'S. PT REPORTING THAT SHE FEELS MUCH BETTER THEN SHE DID EARLIER AND DENIES ANY FURTHER NEEDS AT THIS TIME.
[2021-06-02 03:55] LABS: BASOPHILS ABSOLUTE AUTO 0.03 K/mm3 (0.00-0.23); BASOPHILS PERCENT AUTO 0 % (0-2); EOSINOPHILS ABSOLUTE AUTO 0.18 K/mm3 (0.00-0.68); EOSINOPHILS PERCENT AUTO 3 % (0-6); Hematocrit 33.6 % (33.0-51.0); Hemoglobin 10.5 g/dL (11.5-16.0); IMMATURE GRAN ABSOLUTE AUTO 0.02 K/mm3 (0.00-0.10); IMMATURE GRAN PERCENT AUTO 0 % (0-1); LYMPHOCYTES ABSOLUTE AUTO 1.61 K/mm3 (0.84-5.20); LYMPHOCYTES PERCENT AUTO 22 % (21-46); MONOCYTES ABSOLUTE AUTO 0.93 K/mm3 (0.16-1.47); MONOCYTES PERCENT AUTO 13 % (4-13); Mean Corpuscular HGB 28.9 pg (26.0-34.0); Mean Corpuscular HGB Conc 31.3 g/dL (31.5-36.5); Mean Corpuscular Volume 93 fL (80-100); NEUTROPHILS ABSOLUTE AUTO 4.43 K/mm3 (1.96-9.15); NEUTROPHILS PERCENT AUTO 62 % (41-73); Platelet Count 187 K/mm3 (150-400); RDW Coefficient Variation 14.6 % (11.7-14.2); RDW Standard Deviation 49.9 fL (35.1-46.3); Red Blood Cell Count 3.63 M/mm3 (3.80-5.20)
[2021-06-02 04:16] LABS: Anion Gap 6 mmol/L (6-16); Blood Urea Nitrogen 9 mg/dL (8-24); Bun/Creatinine Ratio 10.6 (12.0-20.0); CO2, Blood 26 mmol/L (21-32); Calcium, Blood 8.4 mg/dL (8.5-10.1); Chloride, Blood 110 mmol/L (98-108); Creatinine, Blood 0.85 mg/dL (0.40-1.00); Glomerular Filtration Rate >60 (60-); Glucose, Blood 100 mg/dL (70-99); Phosphorus, Blood 2.6 mg/dL (2.5-4.9); Potassium, Blood 3.3 mmol/L (3.5-5.5); Sodium, Blood 142 mmol/L (136-145)
--- NOTE | 2021-06-02 05:45 | NUR ---
SUPERVISOR CONCRETE BLOCK [employer]ANT SUMMARY PT IS AXO X4 AND USES HER CALL LIGHT TO MAKE HER NEEDS KNOWN. PT HAS DENIED ANY PAIN OR NAUSEA THIS SHIFT. PT HAD TWO LOOSE BM'S THIS SHIFT AND REFUSED PM BOWEL CARE. O2 SATS >92% ON RM AIR. BP CONTINUES TO HAVE WIDE PULSE PRESSURE W SBP 160-170 AND DBP IN THE 50'S. TELE SHOWING SR IN THE 70-80'S THIS SHIFT. WILL REPORT TO ONCOMING RN.
--- NOTE | 2021-06-02 08:51 | NUR ---
CARE ASSUMPTION: PATIENT ALERT AND ORIENTED X4. PERRLA. NEURO WNL. ABLE TO MOVE ALL EXTREMITIES. 1 PERSON ASSIST TO BSC. DENIES NUMBNESS/TINGLING. ON ROOM AIR, LUNGS SOUNDING CLEAR AND DIM IN BASES. DENIES SOB. TELE SHOWING SINUS RHYTHM WITH HR 60-70'S. BP ELEVATED. HOME EMD RESTARTED THIS AM. WILL CONTINUE TO MONITOR BP. DENIES CHEST PAIN/PRESSURE. NO SIGNS OF EDEMA. TOLERATING CLEAR LIQUID DIET. PLAN TO ADVACE TO FULL LIQUID. PATIENT CLAIMS TO HAVE LLQ TENDERNESS. SMALL LIQUID BOWEL MOVEMENTS REPORTED THROUGH THE NIGHT. TAKING PILLS WHOLE WITH WATER. CALL LIGHT IN REACH. DENIES NEEDS AT THIS TIME. WILL CONTINUE TO MONITOR.
--- NOTE | 2021-06-02 11:33 | NUR ---
UPDATE: DR. SHARMA IN TO SEE PATIENT. NO NEW ORDERS. SOCIAL MEDIA SENIOR ASSOCIATE TALKING WITH PATIENT AT THIS TIME. VITAL SIGNS STABLE. UP TO BSC WITH SBA. DENIES DIZZINESS/LIGHTHEADED WHEN UP. WILL CONTINUE TO MONITOR.
[2021-06-02] MEDS ORDERED: MIRALAX17 GM PO (12:35)
--- NOTE | 2021-06-02 13:46 | NUR ---
Pt requested diet education for preventing future bowel obstructions. Educated pt on daily fiber and fluid recommendations. Reviewed good sources of fiber and identified areas in patient's typical diet to increase fiber. Pt enjoys several high fiber foods, but sometimes chooses only low fiber options for several days. Encouraged pt to include some of the higher fiber foods she enjoys each day. Recommended pt increase fiber intake slowly. Pt typically drinks water with her medications at breakfast and dinner. Encouraged pt to drink water throughout the day to ensure adequate hydration. Pt drinks coffee throughout the day - discussed that some people experience constipation from high levels of caffeine intake. Pt may try adjusting intake when experiencing constipation. Also discussed impact of physical activity on healthy gut function. Pt is limited in her physical activity options d/t back pain, but pt is hoping to start PT soon. Encouraged pt that PT visits are a good way to get physical activity.
--- NOTE | 2021-06-02 14:18 | NUR ---
DISCHARGE: NO ACUTE CHANGES. PATIENT REMAINS DIZZY FREE. NO CHANGES IN TELE. REMAINS ON ROOM AIR. VITAL SIGNS STABLE. FOLLOW UP APPOINTMENTS MADE. DISCHARGE INSTRUCTIONS REVIEWED AND QUESTIONS ANSWERED. SON PRESENT AT TIME. SON IN TO MACHINE FEEDER RAW STOCK PATIENT. IV TAKEN OUT WNL. PATIENT LEFT UNIT VIA WHEELCHAIR WITH ALL PERSONAL BELONGINGS.
== END 2021-06-02 14:13 | disposition home or self-care (01) | DRG 813 ==
LOC: ER 00:25 → MEDS 00:26 → PCU 05-30 15:46 → MEDS 05-30 15:46 → PCU 06-01 10:58
PROVIDERS: Family Medicine; Student in an Organized Health Care Education/Training Program; ADMIT Internal Medicine
DX: D68.32 Hemorrhagic disorder due to extrinsic circulating anticoagulants (principal); K92.1 Melena; K56.600 Partial intestinal obstruction, unspecified as to cause; K21.9 Gastro-esophageal reflux disease without esophagitis; I48.0 Paroxysmal atrial fibrillation; I25.10 Atherosclerotic heart disease of native coronary artery without angina pectoris; M41.9 Scoliosis, unspecified; I10 Essential (primary) hypertension; R55 Syncope and collapse; Z53.29 Procedure and treatment not carried out because of patient's decision for other reasons; T45.515A Adverse effect of anticoagulants, initial encounter; Z87.891 Personal history of nicotine dependence; Z90.49 Acquired absence of other specified parts of digestive tract; Z98.890 Other specified postprocedural states; Z86.718 Personal history of other venous thrombosis and embolism; Z88.5 Allergy status to narcotic agent; Z79.01 Long term (current) use of anticoagulants; Z79.84 Long term (current) use of oral hypoglycemic drugs; Z79.899 Other long term (current) drug therapy
CPT/HCPCS: 36415; 71045; 74177; 74250; 80053; 80069; 82272; 82947; 83605; 83735; 84484; 85014; 85018; 85025; 85610; 85730; 86850; 86900; 86901; 93005; 93010; 96374-59; 96375; 96376; 99285-25; A9270; C9113; G0378; J0360; J2405; J3010; J7030; J7120; Q9967

== ENCOUNTER 2022-02-03 09:49 | Day surgery (SDC) | payer MEDICARE, OTHER ==
[~2022-02-03] VITALS: Ht 157.5 cm; Wt 58.6 kg
[~2022-02-03 09:49] MED LIST changes: +FEROSUL325 M1 PO; +GABA100 PO; +MIRALAX17 GM PO; +TOCO1000 PO; +Vitamin C100 M1 PO
[2022-02-03] MEDS ORDERED: ELIQUIS2.5 MG PO (10:17)
--- NOTE | 2022-02-03 10:27 | NUR ---
02/03/22 [id number] Dennise Guzman PT DISCHARGED FROM ER. RN AND MA WENT TO PICK HER UP. PT DISCHARGED WITH IV IN PLACE IN [facility]
== END 2022-02-03 12:35 | disposition home or self-care (01) ==
LOC: ORSCSDS 09:49
PROVIDERS: Internal Medicine Gastroenterology
PROC: 0DB48ZX Excision of Esophagogastric Junction, Via Natural or Artificial Opening Endoscopic, Diagnostic (ICD-10-PCS; principal; 2022-02-03 10:15)
PROC: 0DBL8ZX Excision of Transverse Colon, Via Natural or Artificial Opening Endoscopic, Diagnostic (ICD-10-PCS; principal; 2022-02-03 10:15)
PROC: 0DB68ZX Excision of Stomach, Via Natural or Artificial Opening Endoscopic, Diagnostic (ICD-10-PCS; principal; 2022-02-03 10:15)
DX: D50.9 Iron deficiency anemia, unspecified (principal); K44.9 Diaphragmatic hernia without obstruction or gangrene; K92.2 Gastrointestinal hemorrhage, unspecified; K31.7 Polyp of stomach and duodenum; D12.3 Benign neoplasm of transverse colon; K64.4 Residual hemorrhoidal skin tags; R10.9 Unspecified abdominal pain; I25.10 Atherosclerotic heart disease of native coronary artery without angina pectoris; I73.9 Peripheral vascular disease, unspecified; I10 Essential (primary) hypertension; E78.5 Hyperlipidemia, unspecified; Z86.718 Personal history of other venous thrombosis and embolism; Z87.891 Personal history of nicotine dependence; Z79.01 Long term (current) use of anticoagulants; Z79.84 Long term (current) use of oral hypoglycemic drugs; Z79.899 Other long term (current) drug therapy; R11.2 Nausea with vomiting, unspecified; E86.0 Dehydration
CPT/HCPCS: 36415; 80053; 82947; 83690; 85025; 88305; 88341; 88342; 96374; 99284-25; J2405; J2704; J7120

== ENCOUNTER 2022-05-20 16:19 | Emergency (ER) | payer MEDICARE, OTHER ==
[~2022-05-20] VITALS: Ht 157.5 cm; Wt 61.2 kg
[~2022-05-20 16:19] MED LIST changes: +ELIQUIS2.5 MG PO
[2022-05-20 17:25] LABS: BASOPHILS ABSOLUTE AUTO 0.04 K/mm3 (0.00-0.23); BASOPHILS PERCENT AUTO 1 % (0-2); EOSINOPHILS ABSOLUTE AUTO 0.14 K/mm3 (0.00-0.68); EOSINOPHILS PERCENT AUTO 2 % (0-6); Hematocrit 43.8 % (33.0-51.0); Hemoglobin 14.3 g/dL (11.5-16.0); IMMATURE GRAN ABSOLUTE AUTO 0.05 K/mm3 (0.00-0.10); IMMATURE GRAN PERCENT AUTO 1 % (0-1); LYMPHOCYTES ABSOLUTE AUTO 2.12 K/mm3 (0.84-5.20); LYMPHOCYTES PERCENT AUTO 33 % (21-46); MONOCYTES ABSOLUTE AUTO 0.69 K/mm3 (0.16-1.47); MONOCYTES PERCENT AUTO 11 % (4-13); Mean Corpuscular HGB 31.4 pg (26.0-34.0); Mean Corpuscular HGB Conc 32.6 g/dL (31.5-36.5); Mean Corpuscular Volume 96 fL (80-100); Mean Platelet Volume 11.1 fL (9.1-12.4); NEUTROPHILS ABSOLUTE AUTO 3.43 K/mm3 (1.96-9.15); NEUTROPHILS PERCENT AUTO 53 % (41-73); Platelet Count 182 K/mm3 (150-400); RDW Coefficient Variation 13.8 % (11.7-14.2); RDW Standard Deviation 46.2 fL (35.1-46.3); Red Blood Cell Count 4.56 M/mm3 (3.80-5.20); White Blood Cell Count 6.47 K/mm3 (4.00-11.30)
[2022-05-20 17:43] LABS: Albumin, Blood 3.5 g/dL (3.4-5.0); Albumin/Globulin Ratio 0.9 (0.8-1.8); Bilirubin, Total 0.4 mg/dL (0.1-1.0); Bun/Creatinine Ratio 27.8 (12.0-20.0); Calcium, Blood 9.1 mg/dL (8.5-10.1); Creatinine, Blood 0.76 mg/dL (0.40-1.00); Globulin, Blood 3.7 g/dL (2.2-4.0); Potassium, Blood 4.7 mmol/L (3.5-5.5); Total Protein, Blood 7.2 g/dL (6.4-8.2)
[2022-05-20 20:00] LABS: Source, Urine Clean Catch
[2022-05-20 20:11] LABS: Bilirubin, Urine Neg (Neg); Blood, Urine 1+ (Neg); Glucose Qualitative, Urine Neg (Neg); Ketones, Urine Neg (Neg); Leukocyte Esterase, Urine 1+ (Neg); Nitrite, Urine Neg (Neg); Protein, Urine 3+ (Neg); Urobilinogen, Urine NORM (Normal)
[2022-05-20 20:27] LABS: Appearance, Urine Clear (Clear); Color, Urine Yellow (P-Yellow)
[2022-05-20 20:28] LABS: Magnesium, Blood 1.6 mg/dL (1.6-2.4)
[2022-05-20 20:28] LABS: Bacteria Few /hpf; Red Blood Cells, Urine 0-2 /hpf (0-2); Squamous Epithelial Cells Few /hpf (Few)
[2022-05-20 21:08] LABS: Influenza A, PCR NEGATIVE (NEGATIVE); Influenza B, PCR NEGATIVE (NEGATIVE); Resp Syncytial Virus, PCR NEGATIVE (NEGATIVE); SARS-Cov-2 (COVID-19) PCR, MMC NEGATIVE (NEGATIVE)
[2022-05-20 21:18] LABS: Free Thyroxine 1.01 ng/dL (0.70-1.60)
[2022-05-20 21:20] LABS: Triiodothyronine, Free 3.04 pg/mL (2.18-3.98)
== END 2022-05-20 21:34 | disposition home or self-care (01) ==
LOC: ER 16:19
PROVIDERS: Physician Assistant; Student in an Organized Health Care Education/Training Program
DX: J06.9 Acute upper respiratory infection, unspecified (principal); R53.1 Weakness; R53.83 Other fatigue; R53.81 Other malaise; E86.0 Dehydration; I10 Essential (primary) hypertension; Z91.041 Radiographic dye allergy status; Z88.5 Allergy status to narcotic agent; Z79.899 Other long term (current) drug therapy; Z79.84 Long term (current) use of oral hypoglycemic drugs; Z79.01 Long term (current) use of anticoagulants; Z95.5 Presence of coronary angioplasty implant and graft; Z87.891 Personal history of nicotine dependence; Z20.822 Contact with and (suspected) exposure to COVID-19
CPT/HCPCS: 0241U; 71045; 80053; 81001; 83735; 84439; 84443; 84481; 85025; 93005; 93010

== ENCOUNTER 2022-07-19 19:30 | Emergency (ER) | payer MEDICARE, OTHER ==
[~2022-07-19] VITALS: Ht 165.1 cm; Wt 90.7 kg
[2022-07-19 20:18] LABS: BASOPHILS ABSOLUTE AUTO 0.04 K/mm3 (0.00-0.23); BASOPHILS PERCENT AUTO 0 % (0-2); EOSINOPHILS ABSOLUTE AUTO 0.06 K/mm3 (0.00-0.68); EOSINOPHILS PERCENT AUTO 1 % (0-6); Hematocrit 42.8 % (33.0-51.0); Hemoglobin 14.2 g/dL (11.5-16.0); IMMATURE GRAN ABSOLUTE AUTO 0.05 K/mm3 (0.00-0.10); IMMATURE GRAN PERCENT AUTO 1 % (0-1); LYMPHOCYTES ABSOLUTE AUTO 2.04 K/mm3 (0.84-5.20); LYMPHOCYTES PERCENT AUTO 21 % (21-46); MONOCYTES ABSOLUTE AUTO 0.78 K/mm3 (0.16-1.47); MONOCYTES PERCENT AUTO 8 % (4-13); Mean Corpuscular HGB 31.6 pg (26.0-34.0); Mean Corpuscular HGB Conc 33.2 g/dL (31.5-36.5); Mean Corpuscular Volume 95 fL (80-100); Mean Platelet Volume 11.1 fL (9.1-12.4); NEUTROPHILS PERCENT AUTO 69 % (41-73); Platelet Count 171 K/mm3 (150-400); RDW Coefficient Variation 12.7 % (11.7-14.2); RDW Standard Deviation 44.7 fL (35.1-46.3); Red Blood Cell Count 4.49 M/mm3 (3.80-5.20); White Blood Cell Count 9.57 K/mm3 (4.00-11.30)
[2022-07-19 20:34] LABS: Albumin, Blood 3.8 g/dL (3.4-5.0); Albumin/Globulin Ratio 1.1 (0.8-1.8); Bilirubin, Total 0.3 mg/dL (0.1-1.0); Bun/Creatinine Ratio 37.8 (12.0-20.0); Calcium, Blood 9.5 mg/dL (8.5-10.1); Creatinine, Blood 0.82 mg/dL (0.40-1.00); Globulin, Blood 3.5 g/dL (2.2-4.0); Potassium, Blood 4.4 mmol/L (3.5-5.5); Total Protein, Blood 7.3 g/dL (6.4-8.2)
[2022-07-19 21:36] LABS: Source, Urine Clean Catch
[2022-07-19 21:45] LABS: Appearance, Urine Clear (Clear); Bilirubin, Urine Neg (Neg); Blood, Urine Neg (Neg); Color, Urine Yellow (P-Yellow); Glucose Qualitative, Urine Neg (Neg); Ketones, Urine Neg (Neg); Leukocyte Esterase, Urine Neg (Neg); Nitrite, Urine Neg (Neg); Protein, Urine 3+ (Neg); Specific Gravity, Urine 1.015 (1.003-1.022); Urobilinogen, Urine NORM (Normal)
[2022-07-19 21:58] LABS: Bacteria Rare /hpf; Hyaline Casts 0-2 /lpf (0-2); Red Blood Cells, Urine 0-2 /hpf (0-2); Squamous Epithelial Cells Few /hpf (Few); White Blood Cells, Urine 0-2 /hpf (0-5)
[2022-07-19] MEDS ORDERED: ONDA4ODT MM (23:38)
[2022-07-19] MEDS ORDERED: MECL25 PO (23:38)
== END 2022-07-20 00:05 | disposition home or self-care (01) ==
LOC: ER 19:30
PROVIDERS: Emergency Medicine
DX: R42 Dizziness and giddiness (principal); R11.0 Nausea; I10 Essential (primary) hypertension; K21.9 Gastro-esophageal reflux disease without esophagitis; Z88.5 Allergy status to narcotic agent; Z91.041 Radiographic dye allergy status; Z79.84 Long term (current) use of oral hypoglycemic drugs; Z79.899 Other long term (current) drug therapy
CPT/HCPCS: 36415; 80053; 81001; 84484; 85025; 93005; 93010; 96374; 99284-25; A9270; J2405; J7030

== ENCOUNTER → 2023-04-01 | Outpatient (CLI) | payer MEDICARE, OTHER ==
[~2023-04-01] MED LIST changes: +MECL25 PO; +ONDA4ODT MM
[2023-04-01 14:43] LABS: Hematocrit 39.4 % (33.0-51.0); Hemoglobin 13.2 g/dL (11.5-16.0); Mean Corpuscular HGB 31.9 pg (26.0-34.0); Mean Corpuscular HGB Conc 33.5 g/dL (31.5-36.5); Mean Corpuscular Volume 95 fL (80-100); Mean Platelet Volume 10.8 fL (9.1-12.4); Platelet Count 183 K/mm3 (150-400); RDW Coefficient Variation 13.1 % (11.7-14.2); RDW Standard Deviation 45.5 fL (35.1-46.3); Red Blood Cell Count 4.14 M/mm3 (3.80-5.20); White Blood Cell Count 9.21 K/mm3 (4.00-11.30)
[2023-04-01 14:53] LABS: Albumin, Blood 3.4 g/dL (3.4-5.0); Albumin/Globulin Ratio 0.9 (0.8-1.8); Bilirubin, Total 0.3 mg/dL (0.1-1.0); Bun/Creatinine Ratio 25.2 (12.0-20.0); Calcium, Blood 9.1 mg/dL (8.5-10.1); Creatinine, Blood 1.07 mg/dL (0.40-1.00); Globulin, Blood 3.8 g/dL (2.2-4.0); Potassium, Blood 4.2 mmol/L (3.5-5.5); Total Protein, Blood 7.2 g/dL (6.4-8.2)
[2023-04-01 15:16] LABS: BASOPHILS ABSOLUTE MAN 0.09 K/mm3 (0.00-0.23); BASOPHILS PERCENT MAN 1 % (0-2); EOSINOPHILS ABSOLUTE MAN 0.27 K/mm3 (0.00-0.68); EOSINOPHILS PERCENT MAN 3 % (0-6); LYMPHOCYTES ABSOLUTE MAN 1.28 K/mm3 (0.84-5.20); LYMPHOCYTES PERCENT MAN 14 % (21-46); MONOCYTES ABSOLUTE MAN 0.82 K/mm3 (0.16-1.47); MONOCYTES PERCENT MAN 9 % (4-13); NEUTROPHILS ABSOLUTE MAN 6.72 K/mm3 (1.96-9.15); SEG NEUTROPHILS PERCENT MAN 73 % (41-73); TOTAL CELLS COUNTED 100
[2023-04-01 15:54] LABS: International Normalized Ratio 1.08; Prothrombin Time Results 11.3 Sec (9.7-11.5)
== END | disposition home or self-care (01) ==
LOC: LAB 14:32 → LAB SHORT 14:32
PROVIDERS: Physician Assistant
DX: I73.9 Peripheral vascular disease, unspecified (principal); R23.3 Spontaneous ecchymoses
CPT/HCPCS: 80053; 85007; 85027; 85610; 85730